=== PATIENT | female | born 1960 | race Caucasian/White ===

== ENCOUNTER 2016-11-01 12:34 | Emergency (ER) | payer OTHER ==
[~2016-11-01] VITALS: Ht 165.1 cm; Wt 80.0 kg
[~2016-11-01 12:34] MED LIST: COZA100T PO; DICL75 PO; GABA600T PO; IBUP-238 PO; LIDO5DIS35 TD; LORTA5 PO; MELO15 PO; PRAV10 PO; PROT40TA PO; RANI150T PO; SERT25TA83 PO; TIZA4 PO; TOPI50TA4 PO; WELL150T PO
[2016-11-01 12:36] VITALS: BP 212/104; PULSE 80; RESP 20; TEMP 98.1; O2SAT 95
[2016-11-01 15:13] LABS: AUTOMATED NEUTROPHIL # 5.1 TH/MM3 (1.8-7.7); BASOPHIL % 0.5 % (0.0-2.0); EOSINOPHIL # 0.1 TH/MM3 (0-0.4); EOSINOPHIL % 1.8 % (0.0-4.0); HEMATOCRIT 40.5 % (35.0-46.0); HEMO FLAGS DIFF FINAL; LYMPH % 18.5 % (9.0-44.0); LYMPHOCYTE # 1.3 TH/MM3 (1.0-4.8); MEAN CELL VOLUME 91.5 FL (80.0-100.0); MEAN CORPUSCULAR HEMOGLOBIN 31.4 PG (27.0-34.0); MEAN CORPUSCULAR HGB CONC 34.4 % (32.0-36.0); MONO % 6.1 % (0.0-8.0); NEUT % 73.1 % (16.0-70.0); PLATELET COUNT 170 TH/MM3 (150-450); RED BLOOD COUNT 4.43 MIL/MM3 (4.00-5.30); RED CELL DISTRIBUTION WIDTH 14.2 % (11.6-17.2); WHITE BLOOD COUNT 6.9 TH/MM3 (4.0-11.0)
[2016-11-01 15:28] LABS: ANION GAP 7 MEQ/L (5-15); AST (GOT) 18 U/L (15-37); BICARBONATE 24.7 MEQ/L (21.0-32.0); BLOOD UREA NITROGEN 9 MG/DL (7-18); CHLORIDE 108 MEQ/L (98-107); GLOMERULAR FILTRATION RATE 87 ML/MIN (>89); POTASSIUM 3.8 MEQ/L (3.5-5.1); SODIUM (NA) 140 MEQ/L (136-145)
[2016-11-01 15:31] LABS: ALKALINE PHOSPHATASE 86 U/L (45-117); ALT (GPT) 22 U/L (10-53); TOTAL BILIRUBIN ADULT 0.4 MG/DL (0.2-1.0)
[2016-11-01 15:40] LABS: BLOOD, URINE NEG (NEG); COMMENT (UR) CULT NOT INDICATED; CULTURE IF INDICATED CULT NOT INDICATED; GLUCOSE,URINE NEG (NEG); KETONE, URINE NEG (NEG); MUCUS URINE FEW /lpf (OCC); NITRITE,URINE NEG (NEG); PH, URINE 6.5 (5.0-8.5); SQUAMOUS EPITHELIAL CELL URINE 2 /hpf (0-5); URINE COLOR YELLOW (YELLW/STRAW)
--- NOTE | 2016-11-01 16:07 | PD ---
HPI . diarrhea, headache and nausea Chief Complaint: GI Complaint Time Seen by Provider: 16:07 Travel History International Travel<30 days: No Contact w/Intl Traveler<30days: No Traveled to known affect area: No History of Present Illness HPI 56-year-old male with history of hypertension and migraines here with complaints of migraine, nausea, vomiting and diarrhea. Patient tells me that she has had nausea for over 2 weeks and vomiting for 1 week. She went to her primary care provider and was told that she needed to be on omeprazole and Protonix. She has then developed diarrhea for 2 days and some abdominal pain. She is also reporting some heart palpitations. She tells me that her headache is similar to the migraines she has had in the past. Usually [employer] [place] works, but it is not working at this point. Rates the pain 10/10 without any radiation. In her abdomen she describes it more as a discomfort, but with examination and light palpation patient is writhing in pain. She denies any chest pain, diaphoresis or shortness of breath. She is accompanied by her significant other. PFSH Past Medical History Arthritis: Yes Autoimmune Disease: No Blood Disorders: No Anxiety: Yes Depression: Yes Heart Rhythm Problems: No Cancer: No Cardiovascular Problems: Yes (HTN) Chemotherapy: No Congestive Heart Failure: No Cerebrovascular Accident: No Endocrine: No Gastrointestinal Disorders: Yes GERD: Yes Genitourinary: No Headaches: Yes Hepatitis: No Hiatal Hernia: Yes Hypertension: Yes Immune Disorder: No Implanted Vascular Access Dvce: Yes Kidney Stones: No Musculoskeletal: Yes (NUMBNESS LEFT WRIST) Neurologic: Yes ( NERUOPATHY, SPINAL CORD ILLNESS) Psychiatric: No Reproductive: No Respiratory: No Migraines: Yes Myocardial Infarction: No Radiation Therapy: No Renal Failure: No Seizures: Yes Sleep Apnea: No ?: Not LMP: MENOPAUSAL Menopausal: Yes : 4 Para: 3 : 1 Tubal Ligation: Yes Past Surgical History Arteriovenous Shunt: Yes (neck ) Cardiac Surgery: No Cholecystectomy: No Gynecologic Surgery: Yes (breast augmentation) Neurologic Surgery: Yes (NECK) Pacemaker: No Other Surgery: Yes (BREAST AUGMENTATION; 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) Social History Alcohol Use: No Tobacco Use: Yes (5-7 CIGARETTES DAILY) Substance Use: Yes (MARIJUANA, COCAINE HX) Allergies-Medications (Allergen,Severity, Reaction): Coded Allergies: *MDRO Multi-Drug Resistant Organism (Unverified Allergy, Unknown, 11/01/16) MRSA 2013 Reported Meds & Prescriptions Reported Meds & Active Scripts Active Zofran (Ondansetron HCl) 4 Mg Tab 4 Mg PO Q8HR PRN Lidoderm Patch (Lidocaine) 5 % Dis 1 Patch TD DAILY Diclofenac Sodium Dr (Diclofenac Sod) 75 Mg Tab 75 Mg PO BID PRN Motrin (Ibuprofen) 800 Mg Tab 800 Mg PO TID PRN Reported Zanaflex 4 mg (Tizanidine HCl) 4 Mg Tab 4 Mg PO Q8H Ranitidine 150 mg (Ranitidine HCl) 150 Mg Tab 150 Mg PO HS Mobic 15 Mg Tab (Meloxicam) 15 Mg Tab 15 Mg PO DAILY Wellbutrin Sr (Bupropion HCl) 150 Mg Tab 150 Mg PO BID [place] 5-325 mg (Hydrocodone-Acetaminophen 5-325 mg) 1 Tab 1-2 Tab PO Q4H PRN Pravastatin Sodium (Pravastatin Sod) 10 Mg Tab 10 Mg PO HS Sertraline 25 mg (Sertraline HCl) 25 Mg Tab 25 Mg PO DAILY Cozaar (Losartan Potassium) 100 Mg Tab 100 Mg PO DAILY Gabapentin 600 Mg Tab 600 Mg PO BID Topamax (Topiramate) 50 Mg Tab 50 Mg PO TID Protonix (Pantoprazole Sodium) 40 Mg Tab 40 Mg PO DAILY Review of Systems General / Constitutional: No: Fever Eyes: No: Visual changes HENT: Positive: Headaches Cardiovascular: No: Chest Pain or Discomfort Respiratory: No: Shortness of Breath Gastrointestinal: Positive: Nausea, Vomiting, Abdominal Pain Genitourinary: No: Dysuria Musculoskeletal: No: Pain Skin: No Rash Neurologic: No: Weakness Psychiatric: No: Depression Endocrine: No: Polydipsia Hematologic/Lymphatic: No: Easy Bruising Physical Exam Narrative GENERAL: AAO x 3, no acute distress, Well-nourished, well-developed patient. SKIN: Warm and dry. No visible rashes or bruising. HEAD: Normocephalic and atraumatic. EYES: No scleral icterus. No injection or drainage. EOM intact, PERRLA ENT: No nasal drainage noted. Mucous membranes pink. Airway patent. NECK: Supple, trachea midline. No JVD. No lymphadenopathy. CARDIOVASCULAR: Regular rate and rhythm without murmurs, gallops, or rubs. RESPIRATORY: Breath sounds equal bilaterally. No accessory muscle use. No rhonchi or rales. GASTROINTESTINAL: Abdomen soft, nondistended, tender throughout entire abdomen. No rebound or guarding. EXTREMITIES: No cyanosis or edema. BACK: Nontender without obvious deformity. No CVA tenderness. PSYCH: AAO x 3, normal affect. Data Data Last Documented VS Vital Signs Date Time Temp Pulse Resp B/P Pulse Ox O2 Delivery O2 Flow Rate FiO2 11/01/16 16:30 16 98 Room Air 11/01/16 12:36 98.1 80 212/104 Orders Complete Blood Count With Diff (11/01/16 12:51) Comprehensive Metabolic Panel (11/01/16 12:51) Urinalysis - C+S If Indicated (11/01/16 12:51) Iv Access Insert/Monitor (11/01/16 12:51) Oxygen Administration (11/01/16 12:51) Oximetry (11/01/16 12:51) Lipase (11/01/16 12:51) Lactic Acid (11/01/16 16:12) Ct Abd/Pel W Iv Contrast(Rout) (11/01/16 16:12) Ecg Monitoring (11/01/16 16:12) Sodium Chloride 0.9% Flush (Ns Flush) (11/01/16 16:15) Electrocardiogram (11/01/16 16:12) Ckmb (Isoenzyme) Profile (11/01/16 16:12) Magnesium (Mg) (11/01/16 16:12) Troponin I (11/01/16 16:12) Prochlorperazine Inj (Compazine Inj) (11/01/16 16:30) Diphenhydramine Inj (Benadryl Inj) (11/01/16 16:30) Oral Contrast - Adult (11/01/16 16:37) Diatrizoate Liq ( Gastrojohn Liq) (11/01/16 16:43) Iohexol 350 Inj (Omnipaque 350 Inj) (11/01/16 19:02) Labs Laboratory Tests Test 11/01/16 11/01/16 11/01/16 13:15 14:20 16:30 Urine Color YELLOW Urine Turbidity CLEAR Urine pH 6.5 Urine Specific [place] 1.015 Urine Protein NEG mg/dL Urine Glucose (UA) NEG mg/dL Urine Ketones NEG mg/dL Urine Occult Blood NEG Urine Nitrite NEG Urine Bilirubin NEG Urine Urobilinogen LESS THAN 2.0 MG/DL Urine Leukocyte Esterase NEG Urine WBC LESS THAN 1 /hpf Urine Squamous Epithelial 2 /hpf Cells Urine Mucus FEW /lpf Microscopic Urinalysis Comment CULT NOT INDICATED White Blood Count 6.9 TH/MM3 Red Blood Count 4.43 MIL/MM3 Hemoglobin 13.9 GM/DL Hematocrit 40.5 % Mean Corpuscular Volume 91.5 FL Mean Corpuscular Hemoglobin 31.4 PG Mean Corpuscular Hemoglobin 34.4 % Concent Red Cell Distribution Width 14.2 % Platelet Count 170 TH/MM3 Mean Platelet Volume 8.9 FL Neutrophils (%) (Auto) 73.1 % Lymphocytes (%) (Auto) 18.5 % Monocytes (%) (Auto) 6.1 % Eosinophils (%) (Auto) 1.8 % Basophils (%) (Auto) 0.5 % Neutrophils # (Auto) 5.1 TH/MM3 Lymphocytes # (Auto) 1.3 TH/MM3 Monocytes # (Auto) 0.4 TH/MM3 Eosinophils # (Auto) 0.1 TH/MM3 Basophils # (Auto) 0.0 TH/MM3 CBC Comment DIFF FINAL Differential Comment Sodium Level 140 MEQ/L Potassium Level 3.8 MEQ/L Chloride Level 108 MEQ/L Carbon Dioxide Level 24.7 MEQ/L Anion Gap 7 MEQ/L Blood Urea Nitrogen 9 MG/DL Creatinine 0.70 MG/DL Estimat Glomerular Filtration 87 ML/MIN Rate Random Glucose 136 MG/DL Calcium Level 9.3 MG/DL Total Bilirubin 0.4 MG/DL Aspartate Amino Transf 18 U/L (AST/SGOT) Alanine Aminotransferase 22 U/L (ALT/SGPT) Alkaline Phosphatase 86 U/L Total Protein 7.7 GM/DL Albumin 3.8 GM/DL Lipase 90 U/L Lactic Acid Level 0.7 mmol/L Magnesium Level 2.2 MG/DL Total Creatine Kinase 83 U/L Troponin I LESS THAN 0.02 NG/ML [facility] Medical Decision Making Medical Screen Exam Complete: Yes Emergency Medical Condition: Yes Medical Record Reviewed: Yes Differential Diagnosis migraine, Gastroenteritis, diverticulitis, GERD, IBS, Narrative Course 56-year-old male with history of hypertension and migraines here with complaints of migraine, nausea, vomiting and diarrhea. Patient tells me that she has had nausea for over 2 weeks and vomiting for 1 week. She went to her primary care provider and was told that she needed to be on omeprazole and Protonix. She has then developed diarrhea for 2 days and some abdominal pain. She is also reporting some heart palpitations. She tells me that her headache is similar to the migraines she has had in the past. Usually [employer] [place] works, but it is not working at this point. Rates the pain 10/10 without any radiation. In her abdomen she describes it more as a discomfort, but with examination and light palpation patient is writhing in pain. She denies any chest pain, diaphoresis or shortness of breath. She is accompanied by her significant other. Patient seen and examined. Case discussed with Dr. Boswell. Additional labs and testing have been ordered. Workup is in progress. If CT scan and labs are negative, patient will be cleared for discharge home. Laboratory Tests Test 11/01/16 11/01/16 11/01/16 13:15 14:20 16:30 Urine Color YELLOW Urine Turbidity CLEAR Urine pH 6.5 Urine Specific [place] 1.015 Urine Protein NEG mg/dL Urine Glucose (UA) NEG mg/dL Urine Ketones NEG mg/dL Urine Occult Blood NEG Urine Nitrite NEG Urine Bilirubin NEG Urine Urobilinogen LESS THAN 2.0 MG/DL Urine Leukocyte Esterase NEG Urine WBC LESS THAN 1 /hpf Urine Squamous Epithelial 2 /hpf Cells Urine Mucus FEW /lpf Microscopic Urinalysis Comment CULT NOT INDICATED White Blood Count 6.9 TH/MM3 Red Blood Count 4.43 MIL/MM3 Hemoglobin 13.9 GM/DL Hematocrit 40.5 % Mean Corpuscular Volume 91.5 FL Mean Corpuscular Hemoglobin 31.4 PG Mean Corpuscular Hemoglobin 34.4 % Concent Red Cell Distribution Width 14.2 % Platelet Count 170 TH/MM3 Mean Platelet Volume 8.9 FL Neutrophils (%) (Auto) 73.1 % Lymphocytes (%) (Auto) 18.5 % Monocytes (%) (Auto) 6.1 % Eosinophils (%) (Auto) 1.8 % Basophils (%) (Auto) 0.5 % Neutrophils # (Auto) 5.1 TH/MM3 Lymphocytes # (Auto) 1.3 TH/MM3 Monocytes # (Auto) 0.4 TH/MM3 Eosinophils # (Auto) 0.1 TH/MM3 Basophils # (Auto) 0.0 TH/MM3 CBC Comment DIFF FINAL Differential Comment Sodium Level 140 MEQ/L Potassium Level 3.8 MEQ/L Chloride Level 108 MEQ/L Carbon Dioxide Level 24.7 MEQ/L Anion Gap 7 MEQ/L Blood Urea Nitrogen 9 MG/DL Creatinine 0.70 MG/DL Estimat Glomerular Filtration 87 ML/MIN Rate Random Glucose 136 MG/DL Calcium Level 9.3 MG/DL Total Bilirubin 0.4 MG/DL Aspartate Amino Transf 18 U/L (AST/SGOT) Alanine Aminotransferase 22 U/L (ALT/SGPT) Alkaline Phosphatase 86 U/L Total Protein 7.7 GM/DL Albumin 3.8 GM/DL Lipase 90 U/L Lactic Acid Level 0.7 mmol/L Magnesium Level 2.2 MG/DL Total Creatine Kinase 83 U/L Troponin I LESS THAN 0.02 NG/ML Last Impressions Abdomen/Pelvis CT 11/01/16 1612 Signed Impressions: Service Date/Time: Tuesday, November 01, 2016 19:00 - CONCLUSION: 1. No acute findings. Degenerative disc disease in the lumbar spine. No obstruction, free fluid or free air. Chidi Julian MD Patient reassessed at 1932: she was resting comfortably. I discussed all her normal findings. Advised that she will need to f/u with PCP. She was understanding. Zofran upon discharge for nausea/vomiting. Patient verbalized understanding of instructions, questions were answered, and thanked me for their care. I advised them if their condition worsens, please return to the nearest emergency room for further care. Diagnosis Primary Impression: Nausea & vomiting Qualified Code: R11.2 - Non-intractable vomiting with nausea, unspecified vomiting type Additional Impressions: Gastroenteritis Migraine Qualified Code: G43.909 - Migraine without status migrainosus, not intractable , unspecified migraine type Patient Instructions: Gastroenteritis (ED), General Instructions, Migraine Headache (ED) Additional Instructions: Please return to emergency department if your symptoms return or worsen. Follow up with your primary care provider. Resume your regular home medications. You can use [id number] Excedrin Migraine as needed and directed on the bottle. Try to start with a very bland diet such as bananas, apple, rice, and toast. Advance as tolerated. Med/Other Pt SpecificInfo: No Change to Meds Scripts Ondansetron (Zofran)4 Mg Tab4 Mg PO Q8HR PRN (NAUSEA OR VOMITING) #10 TAB Ref 0 Prov:Nella Boswell MD 11/01/16 Condition: Stable Jayda Muñiz Nov 01, 2016 16:07
[2016-11-01] MEDS ORDERED: SODIUM CHLORIDE 0.9% FLUSH 10 ML FLUSH IV FLUSH PRN (16:15)
[2016-11-01 16:30] VITALS: RESP 16; O2SAT 98
[2016-11-01] MEDS ORDERED: diphenhydrAMINE HCL 50 MG/ML VIAL IV PUSH ONE (16:30)
[2016-11-01] MEDS ORDERED: PROCHLORPERAZINE INJ 10 MG/2 ML VIAL IVS ONE (16:30)
[2016-11-01] MEDS ORDERED: DIATRIZOATE MEGLUM/DIATRIZOATE SOD 9 ML CUP ONE (16:43)
--- NOTE | 2016-11-01 17:08 | PD ---
Physical Exam Date Seen by Provider: Nov 01, 2016 Narrative Patient presents with multiple complaints. Her chief complaint is vomiting and diarrhea. Secondary complaint is headache. Data Data Last Documented VS Vital Signs Date Time Temp Pulse Resp B/P Pulse Ox O2 Delivery O2 Flow Rate FiO2 11/01/16 16:30 16 98 Room Air 11/01/16 12:36 98.1 80 212/104 Orders Complete Blood Count With Diff (11/01/16 12:51) Comprehensive Metabolic Panel (11/01/16 12:51) Urinalysis - C+S If Indicated (11/01/16 12:51) Iv Access Insert/Monitor (11/01/16 12:51) Oxygen Administration (11/01/16 12:51) Oximetry (11/01/16 12:51) Lipase (11/01/16 12:51) Lactic Acid (11/01/16 16:12) Ct Abd/Pel W Iv Contrast(Rout) (11/01/16 16:12) Ecg Monitoring (11/01/16 16:12) Sodium Chloride 0.9% Flush (Ns Flush) (11/01/16 16:15) Electrocardiogram (11/01/16 16:12) Ckmb (Isoenzyme) Profile (11/01/16 16:12) Magnesium (Mg) (11/01/16 16:12) Troponin I (11/01/16 16:12) Prochlorperazine Inj (Compazine Inj) (11/01/16 16:30) Diphenhydramine Inj (Benadryl Inj) (11/01/16 16:30) Oral Contrast - Adult (11/01/16 16:37) Diatrizoate Liq ( Gastroview Liq) (11/01/16 16:43) Labs Laboratory Tests Test 11/01/16 11/01/16 13:15 14:20 Urine Color YELLOW Urine Turbidity CLEAR Urine pH 6.5 Urine Specific [place] 1.015 Urine Protein NEG mg/dL Urine Glucose (UA) NEG mg/dL Urine Ketones NEG mg/dL Urine Occult Blood NEG Urine Nitrite NEG Urine Bilirubin NEG Urine Urobilinogen LESS THAN 2.0 MG/DL Urine Leukocyte Esterase NEG Urine WBC LESS THAN 1 /hpf Urine Squamous Epithelial 2 /hpf Cells Urine Mucus FEW /lpf Microscopic Urinalysis Comment CULT NOT INDICATED White Blood Count 6.9 TH/MM3 Red Blood Count 4.43 MIL/MM3 Hemoglobin 13.9 GM/DL Hematocrit 40.5 % Mean Corpuscular Volume 91.5 FL Mean Corpuscular Hemoglobin 31.4 PG Mean Corpuscular Hemoglobin 34.4 % Concent Red Cell Distribution Width 14.2 % Platelet Count 170 TH/MM3 Mean Platelet Volume 8.9 FL Neutrophils (%) (Auto) 73.1 % Lymphocytes (%) (Auto) 18.5 % Monocytes (%) (Auto) 6.1 % Eosinophils (%) (Auto) 1.8 % Basophils (%) (Auto) 0.5 % Neutrophils # (Auto) 5.1 TH/MM3 Lymphocytes # (Auto) 1.3 TH/MM3 Monocytes # (Auto) 0.4 TH/MM3 Eosinophils # (Auto) 0.1 TH/MM3 Basophils # (Auto) 0.0 TH/MM3 CBC Comment DIFF FINAL Differential Comment Sodium Level 140 MEQ/L Potassium Level 3.8 MEQ/L Chloride Level 108 MEQ/L Carbon Dioxide Level 24.7 MEQ/L Anion Gap 7 MEQ/L Blood Urea Nitrogen 9 MG/DL Creatinine 0.70 MG/DL Estimat Glomerular Filtration 87 ML/MIN Rate Random Glucose 136 MG/DL Calcium Level 9.3 MG/DL Total Bilirubin 0.4 MG/DL Aspartate Amino Transf 18 U/L (AST/SGOT) Alanine Aminotransferase 22 U/L (ALT/SGPT) Alkaline Phosphatase 86 U/L Total Protein 7.7 GM/DL Albumin 3.8 GM/DL Lipase 90 U/L MDM Supervised Visit with ROSEANN: Yes Narrative Course I, Dr. Boswell, have reviewed the advance practice practitioner's documentation and am in agreement, met with the patient face to face, made the diagnosis, and the medical decision making was done by me. *My assessment and Findings: Patient is awake and alert and in no acute distress. Nella Boswell MD Nov 01, 2016 17:08
[2016-11-01 17:23] LABS: MAGNESIUM 2.2 MG/DL (1.5-2.5)
[2016-11-01 17:26] LABS: CREATINE KINASE 83 U/L (26-192)
[2016-11-01] MEDS ORDERED: IOHEXOL 350 MG/ML 10 ML VIAL (for RAD DIAG) IV ONE (19:02)
--- NOTE | 2016-11-01 19:20 | RADRPT ---
EXAM DATE/TIME: 11/01/2016 19:00 [facility] COMPARISON: No previous studies available for comparison. INDICATIONS : Vomiting and diarrhea X 2 weeks. IV CONTRAST: 92 cc Omnipaque 350 (iohexol) IV ORAL CONTRAST: No oral contrast ingested. RADIATION DOSE: 12.95 CTDIvol (mGy) MEDICAL HISTORY : Cardiovascular disease. Seizures. Hypertension.GERD SURGICAL HISTORY : None. ENCOUNTER: Initial ACUITY: 2 weeks PAIN SCALE: 7/10 LOCATION: abdomen TECHNIQUE: Volumetric scanning of the abdomen and pelvis was performed. Using automated exposure control and ad justment of the mA and/or kV according to patient size, radiation dose was kept as low as reasonably achievable to obtain optimal diagnostic quality images. FINDINGS: LOWER LUNGS: The visualized lower lungs are clear. LIVER: Homogeneous density without lesion. There is no dilation of the biliary tree. No calcified gallston es. SPLEEN: Normal size without lesion. PANCREAS: Within normal limits. KIDNEYS: Normal in size and shape. There is no mass, stone or hydronephrosis. ADRENAL GLANDS: Within normal limits. VASCULAR: There is no aortic aneurysm. BOWEL/MESENTERY: The stomach, small bowel, and colon demonstrate no acute abnormality. There is no free intraperitone al air or fluid. ABDOMINAL WALL: Within normal limits. RETROPERITONEUM: There is no lymphadenopathy. BLADDER: No wall thickening or mass. REPRODUCTIVE: Within normal limits. INGUINAL: There is no lymphadenopathy or hernia. MUSCULOSKELETAL: Within normal limits for patient age. CONCLUSION: 1. No acute findings. Degenerative disc disease in the lumbar spine. No obstruction, free fluid or fr ee air. Chidi Julian MD on November 01, 2016 at 19:10 Board Certified Radiologist. This report was verified electronically.
[2016-11-01] MEDS ORDERED: ZOFR4TAB PO (19:39)
[2016-11-01 20:32] VITALS: BP 157/99; TEMP 98.2
[2016-11-01] MEDS ORDERED: MAPA325T PO (22:04)
[2016-11-01] MEDS ORDERED: GNP5TAB6 PO (22:04)
[2016-11-01] MEDS ORDERED: METF500T PO (22:04)
[2016-11-01] MEDS ORDERED: MECL1TAB42 PO (22:04)
[2016-11-01] MEDS ORDERED: GABA300C5 PO (22:04)
[2016-11-01] MEDS ORDERED: CANA100T PO (22:04)
[2016-11-01] MEDS ORDERED: GLIP10TA6 PO (22:04)
[2016-11-01] MEDS ORDERED: METO25TA3 PO (22:04)
[2016-11-01] MEDS ORDERED: BUPR100CR PO (22:04)
[2016-11-01] MEDS ORDERED: OMEG100010 PO (22:04)
--- NOTE | 2016-11-03 12:52 | EKG ---
Date Performed: 11/01/2016 Time Performed: 16:34:20 PTAGE: 56 years EKG: Sinus rhythm NORMAL ECG PREVIOUS TRACING : 01/21/2016 09.59 Compared to prior tracing no significant change DOCTOR: Eliel Caballero Interpretating Date/Time 11/03/2016 12:50:39
== END 2016-11-01 20:32 | disposition home or self-care (01) ==
LOC: NEPA 12:34
DX: R11.2 Nausea with vomiting, unspecified (principal); K52.9 Noninfective gastroenteritis and colitis, unspecified; I10 Essential (primary) hypertension; Z72.0 Tobacco use
CPT/HCPCS: 74177; 80053; 81001; 82550; 83605; 83690; 83735; 84484; 85025; 93005; 96374; 96375; 99284; J0780; J1200; Q9963; Q9967

== ENCOUNTER 2016-11-28 19:24 | Emergency (ER) | payer OTHER, MEDICAID ==
[~2016-11-28] VITALS: Ht 165.1 cm; Wt 82.0 kg
[~2016-11-28 19:24] MED LIST changes: +ZOFR4TAB PO
[2016-11-28 19:26] VITALS: BP 152/100; PULSE 129; RESP 16; TEMP 99.9; O2SAT 96
[2016-11-28] MEDS ORDERED: SODIUM CHLOR 0.9% 1000 ML INJ 1,000 ML IV SCH (21:19)
[2016-11-28] MEDS ORDERED: ONDANSETRON HCL 4 MG/2 ML VIAL IVP ONE (21:30)
[2016-11-28] MEDS ORDERED: ACETAMINOPHEN/HYDROcodone 325 MG/5 MG TAB PO ONE (21:30)
[2016-11-28] MEDS ORDERED: SODIUM CHLORIDE 0.9% FLUSH 10 ML FLUSH IV FLUSH PRN (21:30)
--- NOTE | 2016-11-28 21:54 | PD ---
HPI Chief Complaint: Cold / Flu Symptoms Time Seen by Provider: 21:26 Travel History International Travel<30 days: No Contact w/Intl Traveler<30days: No Traveled to known affect area: No History of Present Illness HPI Patient's 56-year-old female presents emergency department for evaluation of generalized body aches, feeling flushed, upper respiratory symptoms for the past day and a half. Patient states this never happened to her before. She has not had her pain medicine as it has run out and she does not have follow-up appointment with her physician for some time. 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 She does endorse a dry cough denies any chest pain shortness of breath abdominal pain. Does endorse some mild nausea without vomiting. States her symptoms been rapidly worsening. PFSH Past Medical History Arthritis: Yes Autoimmune Disease: No Blood Disorders: No Anxiety: Yes Depression: Yes Heart Rhythm Problems: No Cancer: No Cardiovascular Problems: Yes (HTN) Chemotherapy: No Congestive Heart Failure: No Cerebrovascular Accident: No Endocrine: No Gastrointestinal Disorders: Yes GERD: Yes Genitourinary: No Headaches: Yes Hepatitis: No Hiatal Hernia: Yes Hypertension: Yes Immune Disorder: No Implanted Vascular Access Dvce: Yes Kidney Stones: No Musculoskeletal: Yes (NUMBNESS LEFT WRIST) Neurologic: Yes ( NERUOPATHY, SPINAL CORD ILLNESS) Psychiatric: No Reproductive: No Respiratory: No Migraines: Yes Myocardial Infarction: No Radiation Therapy: No Renal Failure: No Seizures: Yes Sleep Apnea: No Menopausal: Yes : 4 Para: 3 : 1 Tubal Ligation: Yes Past Surgical History Arteriovenous Shunt: Yes (neck ) Cardiac Surgery: No Cholecystectomy: No Gynecologic Surgery: Yes (breast augmentation) Neurologic Surgery: Yes (NECK) Pacemaker: No Other Surgery: Yes (BREAST AUGMENTATION; 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 SKIN: No rash no wound. HEAD: Atraumatic. Normocephalic. I do not feel a reservoir on her head in any location. EYES: Pupils equal and round. No scleral icterus. No injection or drainage. ENT: No nasal bleeding or discharge. Mucous membranes pink and moist. TMs clear bilateral, oropharynx clear. NECK: Trachea midline. No JVD. Kernig's and Brudzinski signs are negative. CARDIOVASCULAR: Tachycardia with regular rhythm. No murmur appreciated. RESPIRATORY: No accessory muscle use. Clear to auscultation. Breath sounds equal bilaterally. GASTROINTESTINAL: Abdomen soft, non-tender, nondistended. Hepatic and splenic margins not palpable. MUSCULOSKELETAL: No obvious deformities. No clubbing. No cyanosis. No edema. NEUROLOGICAL: Awake and alert. No obvious cranial nerve deficits. Motor grossly within normal limits. Normal speech. PSYCHIATRIC: Appropriate mood and affect; insight and judgment normal. Data Data Last Documented VS Vital Signs Date Time Temp Pulse Resp B/P Pulse Ox O2 Delivery O2 Flow Rate FiO2 11/28/16 19:26 99.9 129 16 152/100 96 Room Air Orders Shunt Series (11/28/16 ) Ct Brain W/O Iv Contrast(Rout) (11/28/16 ) Basic Metabolic Panel (Bmp) (11/28/16 21:19) Complete Blood Count With Diff (11/28/16 21:19) Urinalysis - C+S If Indicated (11/28/16 21:19) Iv Access Insert/Monitor (11/28/16 21:19) Ecg Monitoring (11/28/16 21:19) Oximetry (11/28/16 21:19) Ondansetron Inj (Zofran Inj) (11/28/16 21:30) Sodium Chlor 0.9% 1000 Ml Inj (Ns 1000 M (11/28/16 21:19) Sodium Chloride 0.9% Flush (Ns Flush) (11/28/16 21:30) Acetamin-Hydrocod 325-5 Mg ([place] 5-325 (11/28/16 21:30) Influenzae A/B Antigen (11/28/16 21:22) MDM Medical Decision Making Medical Screen Exam Complete: Yes Emergency Medical Condition: Yes Differential Diagnosis Flu, pneumonia, meningitis unlikely, shunt malfunction very unlikely. Narrative Course Patient was roomed in emergency department, has multiple complaints vielka to acute viral syndrome and suspect influenza. She does say that she has a shunt in place however I cannot feel the bulb. A shunt series was ordered for this patient. I do not appreciate any Kernig's and Brudzinski signs. Basic workup has been ordered including CBC BMP rapid flu test. Shunt series was ordered. Patient was discussed with Dr. Espinosa at 2130 to follow-up this workup and disposition patient properly. Condition: Stable Chan Randhawa MD Nov 28, 2016 21:54
--- NOTE | 2016-11-28 21:56 | RADRPT ---
EXAM DATE/TIME: 11/28/2016 21:31 [facility] COMPARISON: CT BRAIN W/O CONTRAST, December 02, 2015, 14:19. INDICATIONS : Headache. RADIATION DOSE: 56.35 CTDIvol (mGy) MEDICAL HISTORY : Seizures. Hypertension. shunt SURGICAL HISTORY : shunt placement ENCOUNTER: Initial ACUITY: 1 day PAIN SCALE: 10/10 LOCATION: cranial TECHNIQUE: Multiple contiguous axial images were obtained of the head. Using automated exposure control and adj ustment of the mA and/or kV according to patient size, radiation dose was kept as low as reasonably a chievable to obtain optimal diagnostic quality images. FINDINGS: CEREBRUM: The ventricles are normal for age. No evidence of midline shift, mass lesion, hemorrhage or acute in farction. No extra-axial fluid collections are seen. POSTERIOR FOSSA: The cerebellum and brainstem are intact. The 4th ventricle is midline. The cerebellopontine angle i s unremarkable. EXTRACRANIAL: The visualized portion of the orbits is intact. SKULL: The calvaria is intact. No evidence of skull fracture. CONCLUSION: Negative noncontrast CT brain. Moises Matute MD on November 28, 2016 at 21:53 Board Certified Radiologist. This report was verified electronically.
--- NOTE | 2016-11-28 22:18 | RADRPT ---
EXAM DATE/TIME: 11/28/2016 21:48 [facility] COMPARISON: CT BRAIN W/O CONTRAST, November 28, 2016, 21:31. INDICATIONS : Headache. MEDICAL HISTORY : None. Ventricular shunt. SURGICAL HISTORY : Craniotomy. ENCOUNTER: Initial ACUITY: 1 day PAIN SCORE: 8/10 LOCATION: Bilateral cranial FINDINGS: Conventional radiographs of the skull (2 views) neck (2 views), chest and KUB were performed. No jatinder nt tubing is seen. A CT brain performed earlier today also demonstrates no evidence of ventriculosto my shunt. Radiopaque densities seen on the study included underwire bra, bra snaps, and 2 rings on a hand projected over the right lower quadrant. CONCLUSION: There is no evidence of shunt or shunt tubing on this shunt series. Moises Matute MD on November 28, 2016 at 22:13 Board Certified Radiologist. This report was verified electronically.
[2016-11-28 22:20] VITALS: PULSE 114; RESP 18; O2SAT 98
[2016-11-28 22:28] VITALS: BP 116/75; PULSE 110; RESP 16; TEMP 102.9; O2SAT 96
--- NOTE | 2016-11-28 22:50 | PD ---
Data Data Last Documented VS Vital Signs Date Time Temp Pulse Resp B/P Pulse Ox O2 Delivery O2 Flow Rate FiO2 11/28/16 23:30 102.3 11/28/16 22:28 110 16 116/75 96 Room Air Orders Shunt Series (11/28/16 ) Ct Brain W/O Iv Contrast(Rout) (11/28/16 ) Basic Metabolic Panel (Bmp) (11/28/16 21:19) Complete Blood Count With Diff (11/28/16 21:19) Urinalysis - C+S If Indicated (11/28/16 21:19) Iv Access Insert/Monitor (11/28/16 21:19) Ecg Monitoring (11/28/16 21:19) Oximetry (11/28/16 21:19) Ondansetron Inj (Zofran Inj) (11/28/16 21:30) Sodium Chlor 0.9% 1000 Ml Inj (Ns 1000 M (11/28/16 21:19) Sodium Chloride 0.9% Flush (Ns Flush) (11/28/16 21:30) Acetamin-Hydrocod 325-5 Mg (Corolla 5-325 (11/28/16 21:30) Influenzae A/B Antigen (11/28/16 21:22) Ketorolac Inj (Toradol Inj) (11/28/16 23:00) Lactic Acid Sepsis Protocol (11/28/16 23:09) Blood Culture (11/28/16 23:09) Cath For Specimen (11/28/16 23:09) Acetaminophen (Tylenol) (11/29/16 00:00) Ceftriaxone Inj (Rocephin Inj) (11/29/16 00:11) Urine Culture (11/29/16 00:12) Labs Laboratory Tests Test 11/28/16 11/28/16 11/28/16 22:05 23:20 23:29 White Blood Count 9.9 TH/MM3 Red Blood Count 4.82 MIL/MM3 Hemoglobin 14.8 GM/DL Hematocrit 44.5 % Mean Corpuscular Volume 92.3 FL Mean Corpuscular Hemoglobin 30.7 PG Mean Corpuscular Hemoglobin 33.2 % Concent Red Cell Distribution Width 14.1 % Platelet Count 165 TH/MM3 Mean Platelet Volume 9.0 FL Neutrophils (%) (Auto) 88.8 % Lymphocytes (%) (Auto) 6.8 % Monocytes (%) (Auto) 4.0 % Eosinophils (%) (Auto) 0.2 % Basophils (%) (Auto) 0.2 % Neutrophils # (Auto) 8.8 TH/MM3 Lymphocytes # (Auto) 0.7 TH/MM3 Monocytes # (Auto) 0.4 TH/MM3 Eosinophils # (Auto) 0.0 TH/MM3 Basophils # (Auto) 0.0 TH/MM3 CBC Comment DIFF FINAL Differential Comment Sodium Level 136 MEQ/L Potassium Level 4.0 MEQ/L Chloride Level 106 MEQ/L Carbon Dioxide Level 21.9 MEQ/L Anion Gap 8 MEQ/L Blood Urea Nitrogen 9 MG/DL Creatinine 0.92 MG/DL Estimat Glomerular Filtration 64 ML/MIN Rate Random Glucose 126 MG/DL Calcium Level 8.8 MG/DL Lactic Acid Level 1.2 mmol/L Urine Color YELLOW Urine Turbidity HAZY Urine pH 5.0 Urine Specific [place] 1.013 Urine Protein NEG mg/dL Urine Glucose (UA) NEG mg/dL Urine Ketones NEG mg/dL Urine Occult Blood MOD Urine Nitrite NEG Urine Bilirubin NEG Urine Urobilinogen LESS THAN 2.0 MG/DL Urine Leukocyte Esterase TRACE Urine RBC 43 /hpf Urine WBC 1 /hpf Urine Squamous Epithelial 3 /hpf Cells Urine Bacteria OCC /hpf Urine Hyaline Casts 1 /lpf Urine Mucus FEW /lpf Microscopic Urinalysis Comment CULT NOT INDICATED MDM Supervised Visit with ROSEANN: No Narrative Course Patient signed out to me by previous provider. Please see associated no for further details. In short patient is a 56-year-old female here with generalized body aches, cough, cold, chest congestion 1.5 days. 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 She does note some nausea, vomiting but does not have any neck stiffness or meningeal symptoms on exam. Patient had low-grade fever. Previous provider had strong suspicion for viral syndrome. Signed out to me pending laboratory workup and imaging for hopeful disposition to home. Patient was given 2 tablets of Corolla, 1 L normal saline bolus, 4 mg Zofran ordered by previous provider. CT of the brain and shunt series were negative with actually no evidence of shunt on either study. Vital signs were rechecked and patient was febrile 102.9, though her heart rate is coming down from the 120s to the 110s. She was given 30 mg Toradol. CBC, BMP, urinalysis, influenza were obtained and notable for hematuria with leukocyte esterase and bacteria. Given her fever and tachycardia lactate and blood cultures were added on her lactate was normal. Influenza negative. Fever defervesced to 100.0. Patient reexamined, symptomatically feels improved. She denies any history of IV drug abuse, she complains of pain throughout the body having been off of her analgesics recently no doubt made worse by this illness. She did have a episode of diarrhea here that may be some degree of morphine/opioid withdrawal. My suspicion at this time is likely that this is still viral but with her urine being likely infected she was given dose of Rocephin. Will be discharged home on Keflex. Diagnosis Primary Impression: Urinary tract infection Qualified Code: N30.01 - Acute cystitis with hematuria Additional Impression: Fever Qualified Code: R50.9 - Fever, unspecified fever cause Referrals: Primary Care Physician as needed Additional Instruction: Antibiotics as prescribed. Tylenol, ibuprofen as needed for pain, fever. Follow-up with pain management physician this week as scheduled. Return to the emergency department for the warning signs discussed. Med/Other Pt SpecificInfo: Prescription(s) given Scripts Cephalexin (Keflex)500 Mg Osh689 Mg PO Q8H 7 Days Ref 0 Prov:Pauline Watson MD 11/29/16 Disposition: 01 DISCHARGE HOME Condition: Stable Pauline Watson MD Nov 28, 2016 22:50
[2016-11-28] MEDS ORDERED: LOSA100T PO (22:58)
[2016-11-28] MEDS ORDERED: BUPR150CR PO (22:58)
[2016-11-28] MEDS ORDERED: PRAV40TA2 PO (22:58)
[2016-11-28] MEDS ORDERED: GABA600T PO (22:58)
[2016-11-28] MEDS ORDERED: TOPA50TA7 PO (22:58)
[2016-11-28] MEDS ORDERED: PANT40TA3 PO (22:58)
[2016-11-28] MEDS ORDERED: ZANA4CAP PO (22:58)
[2016-11-28] MEDS ORDERED: RANI150T PO (22:58)
[2016-11-28] MEDS ORDERED: CLON.5 PO (22:58)
[2016-11-28] MEDS ORDERED: MOBI15TA PO (22:58)
[2016-11-28] MEDS ORDERED: LIDO1PAD52 TOPICAL (22:58)
[2016-11-28] MEDS ORDERED: NORC5TAB PO (22:58)
[2016-11-28] MEDS ORDERED: KETOROLAC TROMETHAMINE 30 MG/ML (IVP) VIAL IV PUSH ONE (23:00)
[2016-11-28 23:07] LABS: AUTOMATED NEUTROPHIL # 8.8 TH/MM3 (1.8-7.7); BASOPHIL % 0.2 % (0.0-2.0); EOSINOPHIL % 0.2 % (0.0-4.0); HEMATOCRIT 44.5 % (35.0-46.0); HEMO FLAGS DIFF FINAL; LYMPH % 6.8 % (9.0-44.0); LYMPHOCYTE # 0.7 TH/MM3 (1.0-4.8); MEAN CELL VOLUME 92.3 FL (80.0-100.0); MEAN CORPUSCULAR HEMOGLOBIN 30.7 PG (27.0-34.0); MEAN CORPUSCULAR HGB CONC 33.2 % (32.0-36.0); NEUT % 88.8 % (16.0-70.0); PLATELET COUNT 165 TH/MM3 (150-450); RED BLOOD COUNT 4.82 MIL/MM3 (4.00-5.30); RED CELL DISTRIBUTION WIDTH 14.1 % (11.6-17.2); WHITE BLOOD COUNT 9.9 TH/MM3 (4.0-11.0)
[2016-11-28 23:30] VITALS: TEMP 102.3
[2016-11-28 23:59] LABS: BACTERIA, URINE OCC /hpf; BLOOD, URINE MOD (NEG); GLUCOSE,URINE NEG (NEG); HYALINE CAST, URINE 1 /lpf (RARE); KETONE, URINE NEG (NEG); MUCUS URINE FEW /lpf (OCC); NITRITE,URINE NEG (NEG); SQUAMOUS EPITHELIAL CELL URINE 3 /hpf (0-5); URINE COLOR YELLOW (YELLW/STRAW)
[2016-11-29] LABS: COMMENT (UR) CULT NOT INDICATED; CULTURE IF INDICATED CULT NOT INDICATED
[2016-11-29] MEDS ORDERED: ACETAMINOPHEN 325 MG TAB PO ONE
[2016-11-29 00:03] LABS: BICARBONATE 21.9 MEQ/L (21.0-32.0)
[2016-11-29] MEDS ORDERED: cefTRIAXone INJ 2,000 MG in SODIUM CHLORIDE 0.9% INJ 100 ML IV STA (00:11)
[2016-11-29 00:32] VITALS: PULSE 98; TEMP 100
[2016-11-29] MEDS ORDERED: CEPH-460 PO (00:35)
== END 2016-11-29 01:34 | disposition home or self-care (01) ==
LOC: NEPD 19:24
DX: N30.01 Acute cystitis with hematuria (principal); R50.9 Fever, unspecified; B96.89 Other specified bacterial agents as the cause of diseases classified elsewhere; R00.0 Tachycardia, unspecified; R05 Cough; R11.0 Nausea; I10 Essential (primary) hypertension; Z72.0 Tobacco use; Z98.2 Presence of cerebrospinal fluid drainage device; Z87.39 Personal history of other diseases of the musculoskeletal system and connective tissue; Z86.79 Personal history of other diseases of the circulatory system; Z87.19 Personal history of other diseases of the digestive system; Z86.69 Personal history of other diseases of the nervous system and sense organs; Z86.59 Personal history of other mental and behavioral disorders
CPT/HCPCS: 70250; 70450; 71010; 72040; 74000; 80048; 81001; 83605; 85025; 87040; 87086; 87804; 96361; 96365; 96375; 99284; J0696; J1885; J2405; J7030; P9612

== ENCOUNTER 2017-11-08 13:57 | Inpatient (IN) | payer OTHER, MEDICAID, MEDICARE ==
[2017-11-08] VITALS (7 sets, daily range): BP systolic 83–140; BP diastolic 47–91; PULSE 60–73; RESP 15–20; TEMP 98–98.2; O2SAT 96–99
[~2017-11-08] VITALS: Ht 167.6 cm; Wt 77.0 kg
[~2017-11-08 13:57] MED LIST changes: +BUPR150CR PO; -COZA100T PO; -DICL75 PO; -GABA600T PO; -IBUP-238 PO; -LIDO5DIS35 TD; -LORTA5 PO; +LOSA100T PO; -MELO15 PO; +PANT40TA3 PO; -PRAV10 PO; -PROT40TA PO; -SERT25TA83 PO; -TIZA4 PO; +TOPA50TA7 PO; -TOPI50TA4 PO; -WELL150T PO; -ZOFR4TAB PO
--- NOTE | 2017-11-08 15:33 | RADRPT ---
EXAM DATE/TIME: 11/08/2017 15:06 [facility] COMPARISON: CT BRAIN W/O CONTRAST, June 14, 2017, 18:30. INDICATIONS : Dizzy falling for two days,generalize weakness. RADIATION DOSE: 56.35 CTDIvol (mGy) MEDICAL HISTORY : Hypertension. Renal failure, acute. SURGICAL HISTORY : Tubal ligation. ENCOUNTER: Initial ACUITY: 2 days PAIN SCALE: 10/10 LOCATION: cranial TECHNIQUE: Multiple contiguous axial images were obtained of the head. Using automated exposure control and adj ustment of the mA and/or kV according to patient size, radiation dose was kept as low as reasonably a chievable to obtain optimal diagnostic quality images. DICOM format image data is available electro nically for review and comparison. FINDINGS: CEREBRUM: The ventricles are normal for age. No evidence of midline shift, mass lesion, hemorrhage or acute in farction. No extra-axial fluid collections are seen. POSTERIOR FOSSA: The cerebellum and brainstem are intact. The 4th ventricle is midline. The cerebellopontine angle i s unremarkable. EXTRACRANIAL: The visualized portion of the orbits is intact. SKULL: The calvaria is intact. No evidence of skull fracture. CONCLUSION: 1. Negative noncontrast CT brain. Moises Matute MD on November 08, 2017 at 15:30 Board Certified Radiologist. This report was verified electronically.
[2017-11-08 16:01] LABS: AUTOMATED NEUTROPHIL # 3.5 TH/MM3 (1.8-7.7); BASOPHIL # 0.1 TH/MM3 (0-0.2); BASOPHIL % 0.8 % (0.0-2.0); EOSINOPHIL # 0.1 TH/MM3 (0-0.4); EOSINOPHIL % 1.9 % (0.0-4.0); HEMOGLOBIN 13.1 GM/DL (11.6-15.3); LYMPH % 31.4 % (9.0-44.0); MEAN CELL VOLUME 89.3 FL (80.0-100.0); MEAN CORPUSCULAR HEMOGLOBIN 29.9 PG (27.0-34.0); MEAN CORPUSCULAR HGB CONC 33.4 % (32.0-36.0); MONO % 9.9 % (0.0-8.0); MONOCYTE # 0.6 TH/MM3 (0-0.9); PLATELET COUNT 190 TH/MM3 (150-450); RED BLOOD COUNT 4.37 MIL/MM3 (4.00-5.30); RED CELL DISTRIBUTION WIDTH 19.2 % (11.6-17.2); WHITE BLOOD COUNT 6.3 TH/MM3 (4.0-11.0)
--- NOTE | 2017-11-08 16:10 | RADRPT ---
EXAM DATE/TIME: 11/08/2017 15:06 [facility] COMPARISON: CT BRAIN W/O CONTRAST, June 14, 2017, 18:30. INDICATIONS : Falling for the last two days RADIATION DOSE: 21.96 CTDIvol (mGy) MEDICAL HISTORY : Hypertension. Renal failure, acute. SURGICAL HISTORY : Tubal ligation. ENCOUNTER: Initial ACUITY: 2 days PAIN SCALE: 10/10 LOCATION: neck TECHNIQUE: Volumetric scanning of the cervical spine was performed. Multiplanar reconstructions in the sagittal, coronal and oblique axial planes were performed. Using automated exposure control and adjustment o f the mA and/or kV according to patient size, radiation dose was kept as low as reasonably achievable to obtain optimal diagnostic quality images. DICOM format image data is available electronically f or review and comparison. FINDINGS: Thin section axial imaging of the cervical spine was performed. Sagittal and coronal imaging demonstrate slight anterior subluxation of C5 relative to C6. There are degenerated disc at C4/5, C5/6 and C6/7. No acute fracture is identified. C1/2: No acute bony abnormality identified. C2/3: The thecal space and foramina are adequate. There is moderate facet arthritis on the left. C3/4: The thecal space and neural foramina are adequate. There is moderate facet arthritis on the left. C4/5: There is minimal disc bulge. The facet joints demonstrate mild arthritic changes bilaterally. The the mary space and neural foramina are adequate. C5/6: There is a degenerated disc. There is minimal disc bulge and osteophytic ridging from the vertebral e ndplates. There is mild facet arthritis bilaterally. The thecal space and foramina are adequate. C6/7: There is a small broad-based disc bulge. There is mild facet arthritis bilaterally. Thecal space and foramina are adequate. C7/T1: The thecal space is adequate. The neural foramina are adequate. No significant abnormality is identif ied. CONCLUSION: Degenerative changes in the cervical spine as above. No acute cervical fracture identified. Rene Sarabia MD on November 08, 2017 at 15:35 Board Certified Radiologist. This report was verified electronically.
[2017-11-08 16:19] LABS: INTERNATIONAL NORMALIZED RATIO 1.1 RATIO; PROTHROMBIN TIME - PATIENT 10.9 SEC (9.8-11.6)
[2017-11-08 16:26] LABS: ALBUMIN 3.1 GM/DL (3.4-5.0); AST (GOT) 225 U/L (15-37); BICARBONATE 22.4 MEQ/L (21.0-32.0); BLOOD UREA NITROGEN 19 MG/DL (7-18); CALCIUM 8.9 MG/DL (8.5-10.1); CHLORIDE 106 MEQ/L (98-107); GLOMERULAR FILTRATION RATE 20 ML/MIN (>89); GLUCOSE,RANDOM 111 MG/DL (74-106); MAGNESIUM 2.6 MG/DL (1.5-2.5); SODIUM (NA) 137 MEQ/L (136-145)
[2017-11-08 16:27] LABS: ALT (GPT) 370 U/L (10-53)
[2017-11-08 16:31] LABS: ALKALINE PHOSPHATASE 177 U/L (45-117); TOTAL BILIRUBIN ADULT 2.3 MG/DL (0.2-1.0); TOTAL PROTEIN 7.6 GM/DL (6.4-8.2); TROPONIN I LESS THAN 0.02 NG/ML (0.02-0.05)
[2017-11-08] MEDS ORDERED: SODIUM CHLOR 0.9% 1000 ML INJ 1,000 ML IV ONE ×3 (16:45→19:30)
--- NOTE | 2017-11-08 16:58 | PD ---
HPI Chief Complaint: Neuro Symptoms/ Deficits Time Seen by Provider: 16:18 Travel History International Travel<30 days: No Contact w/Intl Traveler<30days: No Traveled to known affect area: No History of Present Illness HPI Patient is a 57-year-old female presents emergency department for evaluation of altered mental status. She is here with her fianc. He states they went fishing today and all of a sudden she became very weak and fell down one time. He states for the past few days his weakness is been intermittent but progressive at the same time. She states that the last time this happened she was diagnosed with kidney failure and admitted to the hospital. The patient is significantly altered on arrival with a GCS of 13 is unable to provide any additional history. The patient's fianc knows that she is on something for stomach acid and is on some psychiatric medicines but he does not know what they are. According to the last visit on June 14 the patient was on Wellbutrin losartan pantoprazole ranitidine and Topamax at that time. Patient was seen by Dr. Grimaldo at that time we documented a history similar to today's with clumsy hands and progressive altered mental status. At that time she was positive for opiates and cocaine, she was found to be with an acute kidney injury with a creatinine of 2.5 minutes of total CK mildly elevated at 761. She was admitted given IV fluids and did fairly well. No further history is available at this time given the patient's altered mental status PFSH Past Medical History Arthritis: Yes Autoimmune Disease: No Blood Disorders: No Anxiety: Yes Depression: Yes Heart Rhythm Problems: No Cancer: No Cardiovascular Problems: Yes (HTN) High Cholesterol: Yes Chemotherapy: No Congestive Heart Failure: No Cerebrovascular Accident: No Diabetes: No Endocrine: No Gastrointestinal Disorders: Yes GERD: Yes Genitourinary: No Headaches: Yes Hepatitis: No Hiatal Hernia: No Hypertension: Yes Immune Disorder: No Implanted Vascular Access Dvce: Yes Kidney Stones: No Musculoskeletal: Yes (NUMBNESS LEFT WRIST) Neurologic: Yes ( NERUOPATHY, SPINAL CORD ILLNESS) Psychiatric: No Reproductive: No Respiratory: Yes Migraines: Yes Myocardial Infarction: No Radiation Therapy: No Renal Failure: No Seizures: Yes Sleep Apnea: No Tetanus Vaccination: < 5 Years ?: Not Menopausal: Yes : 4 Para: 3 : 1 Tubal Ligation: Yes Past Surgical History Arteriovenous Shunt: Yes (neck ) Cardiac Surgery: No Cholecystectomy: No Gynecologic Surgery: Yes (breast augmentation) Neurologic Surgery: Yes (NECK) Pacemaker: No Other Surgery: Yes (BREAST AUGMENTATION; 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) Social History Alcohol Use: No Tobacco Use: Yes (5-7 CIGARETTES DAILY) Substance Use: Yes (MARIJUANA, COCAINE HX) Allergies-Medications (Allergen,Severity, Reaction): Coded Allergies: *MDRO Multi-Drug Resistant Organism (Unverified Allergy, Unknown, 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 SKIN: Focused skin assessment warm/dry. Patient does have bruising on bilateral forearms that her fianc states is from her falling down a lot. No frausto signs no raccoons eyes. HEAD: Atraumatic. Normocephalic. EYES: Pupils equal and round. No scleral icterus. No injection or drainage. ENT: No nasal bleeding or discharge. Mucous membranes pink and moist. NECK: Trachea midline. No JVD. CARDIOVASCULAR: Regular rate and rhythm. No murmur appreciated. RESPIRATORY: No accessory muscle use. Clear to auscultation. Breath sounds equal bilaterally. GASTROINTESTINAL: Abdomen soft, non-tender, nondistended. Hepatic and splenic margins not palpable. MUSCULOSKELETAL: No obvious deformities. No clubbing. No cyanosis. No edema. NEUROLOGICAL: Awake and alert. GCS of 13, require sternal rub to open her eyes but then follows commands in all 4 extremities and cranial nerves appear to be intact. The patient then falls back asleep as soon as the cranial nerve exam is finished PSYCHIATRIC: Appropriate mood and affect; insight and judgment normal. Data Data Last Documented VS Vital Signs Date Time Temp Pulse Resp B/P (MAP) Pulse Ox O2 Delivery O2 Flow Rate FiO2 11/08/17 18:00 62 16 116/76 (89) 96 Room Air 11/08/17 14:09 98.0 Orders Orders Electrocardiogram (11/08/17 14:13) Complete Blood Count With Diff (11/08/17 14:13) Comprehensive Metabolic Panel (11/08/17 14:13) Magnesium (Mg) (11/08/17 14:13) Ckmb (Isoenzyme) Profile (11/08/17 14:13) Troponin I (11/08/17 14:13) Act Partial Throm Time (Ptt) (11/08/17 14:13) Prothrombin Time / Inr (Pt) (11/08/17 14:13) Urinalysis - C+S If Indicated (11/08/17 14:13) Ct Brain W/O Iv Contrast(Rout) (11/08/17 14:13) Ct Cerv Spine W/O Contrast (11/08/17 14:13) Cath For Specimen (11/08/17 16:18) Ammonia (11/08/17 16:37) Drug Screen, Random Urine (11/08/17 16:42) Alcohol (Ethanol) (11/08/17 16:42) Lactic Acid (11/08/17 16:42) Chest, Single Ap (11/08/17 ) Blood Gas Venous (Vbg) (11/08/17 16:42) Sodium Chlor 0.9% 1000 Ml Inj (Ns 1000 M (11/08/17 16:45) Sodium Chlor 0.9% 1000 Ml Inj (Ns 1000 M (11/08/17 16:45) Tylenol (Acetaminophen) (11/08/17 16:59) Salicylates (Aspirin) (11/08/17 16:59) Admit Order (Ed Use Only) (11/08/17 ) Labs Laboratory Tests Test 11/08/17 15:28 11/08/17 17:05 11/08/17 17:10 11/08/17 17:20 White Blood Count 6.3 TH/MM3 Red Blood Count 4.37 MIL/MM3 Hemoglobin 13.1 GM/DL Hematocrit 39.0 % Mean Corpuscular Volume 89.3 FL Mean Corpuscular Hemoglobin 29.9 PG Mean Corpuscular Hemoglobin Concent 33.4 % Red Cell Distribution Width 19.2 % Platelet Count 190 TH/MM3 Mean Platelet Volume 9.0 FL Neutrophils (%) (Auto) 56.0 % Lymphocytes (%) (Auto) 31.4 % Monocytes (%) (Auto) 9.9 % Eosinophils (%) (Auto) 1.9 % Basophils (%) (Auto) 0.8 % Neutrophils # (Auto) 3.5 TH/MM3 Lymphocytes # (Auto) 2.0 TH/MM3 Monocytes # (Auto) 0.6 TH/MM3 Eosinophils # (Auto) 0.1 TH/MM3 Basophils # (Auto) 0.1 TH/MM3 CBC Comment DIFF FINAL Differential Comment Prothrombin Time 10.9 SEC Prothromb Time International Ratio 1.1 RATIO Activated Partial Thromboplast Time 28.5 SEC Blood Urea Nitrogen 19 MG/DL Creatinine 2.50 MG/DL Random Glucose 111 MG/DL Total Protein 7.6 GM/DL Albumin 3.1 GM/DL Calcium Level 8.9 MG/DL Magnesium Level 2.6 MG/DL Alkaline Phosphatase 177 U/L Aspartate Amino Transf (AST/SGOT) 225 U/L Alanine Aminotransferase (ALT/SGPT) 370 U/L Total Bilirubin 2.3 MG/DL Sodium Level 137 MEQ/L Potassium Level 3.8 MEQ/L Chloride Level 106 MEQ/L Carbon Dioxide Level 22.4 MEQ/L Anion Gap 9 MEQ/L Estimat Glomerular Filtration Rate 20 ML/MIN Total Creatine Kinase 22 U/L Troponin I LESS THAN 0.02 NG/ML Blood Gas Puncture Site LINE Blood Gas Patient Temperature 98.6 Venous Blood pH 7.27 Venous Blood Partial Pressure CO2 55 mmHg Venous Blood Partial Pressure O2 33 mmHg Venous Blood HCO3 25 mmol/L Venous Blood Oxygen Saturation 57 % Venous Blood Oxygen Content 10.1 Vol % Venous Blood Base Excess -1.4 mmol/L Oxygen Delivery Device RA Ethyl Alcohol Level LESS THAN 3 MG/DL Ammonia 37 MCMOL/L Salicylates Level LESS THAN 1.7 MG/DL Acetaminophen Level LESS THAN 2.0 MCG/ML Test 11/08/17 17:36 11/08/17 17:39 Lactic Acid Level 1.1 mmol/L Urine Opiates Screen POS Urine Barbiturates Screen NEG Urine Amphetamines Screen NEG Urine Benzodiazepines Screen NEG Urine Cocaine Screen POS Urine Cannabinoids Screen NEG MDM Medical Decision Making Medical Screen Exam Complete: Yes Emergency Medical Condition: Yes Interpretation(s) EKG shows normal sinus rhythm normal axis normal R-wave progression. No ST segment changes. The intervals are within normal limits. There are some Q waves in 3 and aVF of undetermined significance. This is borderline EKG per Differential Diagnosis Altered mental status, head injury, neck injury, electrolyte abnormality, hypercapnia, elevated ammonia level, lactic acidosis, pneumonia, UTI, dehydration, rhabdomyolysis Narrative Course Patient room to the emergency department, history is not helpful to determine the patient's altered mental status, she is appearing to protect her airway and is saturating well, she arouses to sternal rub easily. The patient CT head and C-spine negative, she does have elevated LFTs and hepatobiliary pattern, ammonia level was added, lactic acid was added, Tylenol and salicylate were also added. Initial workup fairly unremarkable, Tylenol negative, pH did show some respiratory acidosis which was acute however the patient is protecting her airway and saturating well. My suspicion is that she has had some sort of substance ingestion, she was positive for cocaine in the emergency department. She does require some painful stimuli to wake up when she does she is able to talk some. She protecting her airway she was discussed with Dr. Levine and Dr. Stone for admission. Her boyfriend has just gone home and will return to give additional history as necessary. Diagnosis Primary Impression: Acute kidney injury Additional Impression: Encephalopathy Admitting Information Admitting Physician Requests: Admit Condition: Stable Chan Randhawa MD Nov 08, 2017 16:58
--- NOTE | 2017-11-08 17:08 | RADRPT ---
EXAM DATE/TIME: 11/08/2017 16:49 [facility] COMPARISON: CHEST SINGLE AP, June 14, 2017, 17:17. INDICATIONS : Short of breath MEDICAL HISTORY : Hypertension. Renal failure, acute. SURGICAL HISTORY : Tubal ligation. ENCOUNTER: Initial ACUITY: 1 day PAIN SCORE: Non-responsive. LOCATION: chest FINDINGS: The heart appears mildly enlarged. There is mild diffuse interstitial prominence similar to previous dated 06/14/17. There is no pleural effusion. Heart the visualized bony structures are grossly intact . CONCLUSION: 1. Chronic appearing interstitial changes and cardiomegaly. Stable compared to previous. Rene Sarabia MD on November 08, 2017 at 17:05 Board Certified Radiologist. This report was verified electronically.
[2017-11-08] MEDS ORDERED: NALOXONE HCL 0.4 MG/ML AMP IV PUSH PRN (19:30)
[2017-11-08] MEDS ORDERED: SODIUM CHLORIDE 0.9% FLUSH 10 ML FLUSH IV FLUSH PRN (19:30)
--- NOTE | 2017-11-08 20:03 | RADRPT ---
EXAM DATE/TIME: 11/08/2017 19:34 [facility] COMPARISON: CHEST SINGLE AP, November 08, 2017, 16:49. INDICATIONS : Syncope. Altered mental status. MEDICAL HISTORY : Hypertension. Renal failure, acute. SURGICAL HISTORY : Tubal ligation. ENCOUNTER: Subsequent ACUITY: 1 day PAIN SCORE: Non-responsive. LOCATION: Bilateral chest FINDINGS: A single view of the chest demonstrates the lungs to be symmetrically aerated without evidence of mas s, infiltrate or effusion. The cardiomediastinal contours are unremarkable. Osseous structures are intact. CONCLUSION: No acute disease. Chidi Julian MD on November 08, 2017 at 20:00 Board Certified Radiologist. This report was verified electronically.
--- NOTE | 2017-11-08 20:40 | HHI.HP ---
HPI Service [facility] Primary Care Physician Unknown Admission Diagnosis KAUSHAL, ALtered mental status, Dehydration. Diagnoses: Travel History International Travel<30 Days: No Contact w/Intl Traveler <30 Da: No Traveled to Known Affected Are: No History of Present Illness 57-year-old female with a past medical history significant for chronic pain, migraines and GERD presents to the emergency department for evaluation of altered mental status. The patient will arouse to sternal rub however will not participate in my interview and does not follow commands or answer questions. Per emergency department documentation the patient presented with her fianc. The fianc stated that they were fishing today when all of a sudden the patient became very weak and fell. He states that for the past few days this weakness has been intermittent but progressive. Unable to obtain any history from the patient herself and no family members or fianc were bedside at the time of my examination. Review of Systems Unable to obtain secondary to patient's clinical condition. Past Family Social History Past Medical History (Obtained from medical records) Recurrent urinary tract infection GERD Chronic pain Migraines Past Surgical History Repair of nasal septal fracture C5-C7 laminectomy with cysto-subarachnoid shunting Reported Medications Reported Meds & Active Scripts Active Reported Wellbutrin SR 12 HR (Bupropion HCl) 150 Mg Tab 150 Mg PO BID Losartan (Losartan Potassium) 100 Mg Tab 100 Mg PO HS Pantoprazole (Pantoprazole Sodium) 40 Mg Tab 40 Mg PO BID Ranitidine (Ranitidine HCl) 150 Mg Tab 150 Mg PO HS Topamax (Topiramate) 50 Mg Tab 50 Mg PO TID Allergies: Coded Allergies: *MDRO Multi-Drug Resistant Organism (Unverified Allergy, Unknown, 11/08/17) MRSA 2013 Family History Both parents with CAD and diabetes mellitus. Social History Positive tobacco. Remainder of social history unable to be obtained. Physical Exam Vital Signs Vital Signs Date Time Temp Pulse Resp B/P (MAP) Pulse Ox O2 Delivery O2 Flow Rate FiO2 11/08/17 20:04 11/08/17 19:34 68 15 129/84 (99) 98 Room Air 11/08/17 18:00 62 16 116/76 (89) 96 Room Air 11/08/17 17:00 60 16 93/63 (73) 96 Room Air 11/08/17 16:00 68 16 83/56 (65) 97 Room Air 11/08/17 14:09 98.0 73 20 94/47 (63) 97 Physical Exam GENERAL: female lying in bed, disheveled SKIN: Bilateral forearm bruising HEAD: Atraumatic. Normocephalic. No temporal or scalp tenderness. EYES: Pupils equal round and reactive. No scleral icterus. No injection or drainage. ENT: Nose without bleeding, purulent drainage or septal hematoma. Airway patent. NECK: Trachea midline. No JVD or lymphadenopathy. CARDIOVASCULAR: Regular rate and rhythm without murmurs, gallops, or rubs. RESPIRATORY: Clear to auscultation. Breath sounds equal bilaterally. No wheezes , rales, or rhonchi. GASTROINTESTINAL: Abdomen soft, non-tender, nondistended. No hepato-splenomegaly , or palpable masses. MUSCULOSKELETAL: Extremities without clubbing, cyanosis, or edema. No joint tenderness, effusion, or edema noted. NEUROLOGICAL: Arouses only to sternal rub. Opens and tracks with eyes. Does not answer questions or participate in exam. Laboratory Laboratory Tests Test 11/08/17 15:28 11/08/17 17:05 11/08/17 17:10 11/08/17 17:20 White Blood Count 6.3 Red Blood Count 4.37 Hemoglobin 13.1 Hematocrit 39.0 Mean Corpuscular Volume 89.3 Mean Corpuscular Hemoglobin 29.9 Mean Corpuscular Hemoglobin Concent 33.4 Red Cell Distribution Width 19.2 Platelet Count 190 Mean Platelet Volume 9.0 Neutrophils (%) (Auto) 56.0 Lymphocytes (%) (Auto) 31.4 Monocytes (%) (Auto) 9.9 Eosinophils (%) (Auto) 1.9 Basophils (%) (Auto) 0.8 Neutrophils # (Auto) 3.5 Lymphocytes # (Auto) 2.0 Monocytes # (Auto) 0.6 Eosinophils # (Auto) 0.1 Basophils # (Auto) 0.1 CBC Comment DIFF FINAL Differential Comment Prothrombin Time 10.9 Prothromb Time International Ratio 1.1 Activated Partial Thromboplast Time 28.5 Blood Urea Nitrogen 19 Creatinine 2.50 Random Glucose 111 Total Protein 7.6 Albumin 3.1 Calcium Level 8.9 Magnesium Level 2.6 Alkaline Phosphatase 177 Aspartate Amino Transf (AST/SGOT) 225 Alanine Aminotransferase (ALT/SGPT) 370 Total Bilirubin 2.3 Sodium Level 137 Potassium Level 3.8 Chloride Level 106 Carbon Dioxide Level 22.4 Anion Gap 9 Estimat Glomerular Filtration Rate 20 Total Creatine Kinase 22 Troponin I LESS THAN 0.02 Blood Gas Puncture Site LINE Blood Gas Patient Temperature 98.6 Venous Blood pH 7.27 Venous Blood Partial Pressure CO2 55 Venous Blood Partial Pressure O2 33 Venous Blood HCO3 25 Venous Blood Oxygen Saturation 57 Venous Blood Oxygen Content 10.1 Venous Blood Base Excess -1.4 Oxygen Delivery Device RA Ethyl Alcohol Level LESS THAN 3 Ammonia 37 Salicylates Level LESS THAN 1.7 Acetaminophen Level LESS THAN 2.0 Test 11/08/17 17:36 11/08/17 17:39 Lactic Acid Level 1.1 Urine Opiates Screen POS Urine Barbiturates Screen NEG Urine Amphetamines Screen NEG Urine Benzodiazepines Screen NEG Urine Cocaine Screen POS Urine Cannabinoids Screen NEG Result Diagram: 11/08/17 1528 11/08/17 1528 Caprini VTE Risk Assessment Caprini VTE Risk Assessment: No/Low Risk (score <= 1) Caprini Risk Assessment Model Point Value = 1 Point Value = 2 Point Value = 3 Point Value = 5 Age 41-60 Minor surgery BMI > 25 kg/m2 Swollen legs Varicose veins or History of unexplained or recurrent spontaneous Oral contraceptives or hormone replacement Sepsis (< 1 month) Serious lung disease, including pneumonia (< 1 month) Abnormal pulmonary function Acute myocardial infarction Congestive heart failure (< 1 month) History of inflammatory bowel disease Medical patient at bed rest Age 61-74 Arthroscopic surgery Major open surgery (> 45 min) Laparoscopic surgery (> 45 min) Malignancy Confined to bed (> 72 hours) Immobilizing plaster cast Central venous access Age >= 75 History of VTE Family history of VTE Factor V Leiden Prothrombin [id number] Lupus anticoagulant Anticardiolipin antibodies Elevated serum homocysteine Heparin-induced thrombocytopenia Other congenital or acquired thrombophilia Stroke (< 1 month) Elective arthroplasty Hip, pelvis, or leg fracture Acute spinal cord injury (< 1 month) Prophylaxis Regimen Total Risk Factor Score Risk Level Prophylaxis Regimen 0-1 Low Early ambulation 2 Moderate Order ONE of the following: *Sequential Compression Device (SCD) *Heparin 5000 units SQ BID 3-4 Higher Order ONE of the following medications: *Heparin 5000 units SQ TID *Enoxaparin/Lovenox 40 mg SQ daily (WT < 150 kg, CrCl > 30 mL/min) *Enoxaparin/Lovenox 30 mg SQ daily (WT < 150 kg, CrCl > 10-29 mL/min) *Enoxaparin/Lovenox 30 mg SQ BID (WT < 150 kg, CrCl > 30 mL/min) AND/OR *Sequential Compression Device (SCD) 5 or more Highest Order ONE of the following medications: *Heparin 5000 units SQ TID (Preferred with Epidurals) *Enoxaparin/Lovenox 40 mg SQ daily (WT < 150 kg, CrCl > 30 mL/min) *Enoxaparin/Lovenox 30 mg SQ daily (WT < 150 kg, CrCl > 10-29 mL/min) *Enoxaparin/Lovenox 30 mg SQ BID (WT < 150 kg, CrCl > 30 mL/min) AND *Sequential Compression Device (SCD) Assessment and Plan Assessment and Plan Assessment/plan: 1. Acute renal failure Creatinine 2.50, baseline 0.67 IV fluid hydration Monitor renal function If kidney function does not improve, consider nephrology consult 2. Altered mental status/weakness/falls Head CT, cervical spine CT without acute process Suspect foreign substance ingestion versus overuse of home medications Urine drug screen positive for cocaine Supportive care and monitor 3. Chronic pain/migraines Holding home Topamax for altered mental status FEN Heart healthy diet Electrolytes: monitor and replete prn NS at 100 cc/hr Tanya Stone MD Nov 08, 2017 20:40
[2017-11-08] MEDS: SODIUM CHLORIDE 0.9% FLUSH 10 ML FLUSH IV FLUSH SCH (22:11)
[2017-11-08] MEDS ORDERED: MORP1TAB24 PO (22:13)
[2017-11-09] VITALS (7 sets, daily range): BP systolic 120–144; BP diastolic 70–84; PULSE 56–70; RESP 16–18; TEMP 97.5–98.4; O2SAT 96–98
[2017-11-09] MEDS: SODIUM CHLOR 0.9% 1000 ML INJ 1,000 ML IV SCH ×3 (02:00→16:00)
[2017-11-09 07:06] LABS: AUTOMATED NEUTROPHIL # 1.8 TH/MM3 (1.8-7.7); BASOPHIL % 0.4 % (0.0-2.0); EOSINOPHIL # 0.1 TH/MM3 (0-0.4); HEMATOCRIT 36.4 % (35.0-46.0); LYMPH % 34.9 % (9.0-44.0); LYMPHOCYTE # 1.2 TH/MM3 (1.0-4.8); MEAN CELL VOLUME 89.6 FL (80.0-100.0); MEAN CORPUSCULAR HEMOGLOBIN 29.6 PG (27.0-34.0); MEAN PLATELET VOLUME 9.3 FL (7.0-11.0); MONO % 11.3 % (0.0-8.0); MONOCYTE # 0.4 TH/MM3 (0-0.9); NEUT % 51.4 % (16.0-70.0); PLATELET COUNT 149 TH/MM3 (150-450); RED BLOOD COUNT 4.06 MIL/MM3 (4.00-5.30); RED CELL DISTRIBUTION WIDTH 18.7 % (11.6-17.2); WHITE BLOOD COUNT 3.5 TH/MM3 (4.0-11.0)
[2017-11-09 07:49] LABS: BICARBONATE 22.1 MEQ/L (21.0-32.0); CALCIUM 8.1 MG/DL (8.5-10.1); CREATININE 1.54 MG/DL (0.50-1.00)
[2017-11-09] MEDS ORDERED: LACTULOSE SYRUP 20 GM/30 ML CUP PO ONE (08:45)
[2017-11-09] MEDS: SODIUM CHLORIDE 0.9% FLUSH 10 ML FLUSH IV FLUSH SCH ×2 (09:00→20:55)
[2017-11-09 10:13] LABS: ALBUMIN 2.6 GM/DL (3.4-5.0); DIRECT BILIRUBIN ADULT 1.1 MG/DL (0.0-0.2)
[2017-11-09 10:15] LABS: INDIRECT BILIRUBIN 0.5 MG/DL (0.0-0.8); TOTAL BILIRUBIN ADULT 1.6 MG/DL (0.2-1.0); TOTAL PROTEIN 6.4 GM/DL (6.4-8.2)
--- NOTE | 2017-11-09 12:50 | HHI.PR ---
Subjective Remarks Follow up for encephalopathy. The patient is seen with male friend at bedside. The patient is AAOx4. She does not remember all the events leading up to her admission. The friend reports she was feeling more "shaky" yesterday so he had her take an extra Klonopin prior to them going fishing, then she became very weak and [place]. The patient does not recall the fall but does remember feeling shaky. She reports she sees pain management Dr. Gregorio. She states she is prescribed oramorph, klonopin, flexeril. She states the klonopin and flexeril are new to her since July. She states she usually takes the klonopin and flexeril only at night, however she took that extra klonopin in the morning. Discussed her UDS positive for cocaine, patient does not admit to this. Also discussed her abnormal liver function and renal function. Patient denies any prior diagnosis of liver disease such as cirrhosis or hepatitis. Denies any excessive alcohol use. She also denies any prior history of CKD. Today the patient denies any headache, lightheadedness, dizziness, chest pain, palpitations, shortness of breath, abdominal pain, nausea/vomiting, diarrhea, constipation, or urinary complaints. She is hungry and wants more food. Objective Vitals Vital Signs Date Time Temp Pulse Resp B/P (MAP) Pulse Ox O2 Delivery O2 Flow Rate FiO2 11/09/17 11:50 98.1 69 18 131/72 (91) 98 11/09/17 07:52 58 11/09/17 07:35 98.3 58 16 135/82 (99) 96 11/09/17 04:11 97.5 56 17 120/70 (87) 96 11/09/17 03:00 62 11/08/17 23:47 98.0 66 16 122/72 (89) 99 11/08/17 21:01 98.2 65 16 140/91 (107) 99 11/08/17 20:04 11/08/17 19:34 68 15 129/84 (99) 98 Room Air 11/08/17 18:00 62 16 116/76 (89) 96 Room Air 11/08/17 17:00 60 16 93/63 (73) 96 Room Air 11/08/17 16:00 68 16 83/56 (65) 97 Room Air 11/08/17 14:09 98.0 73 20 94/47 (63) 97 I/O 11/08/17 11/08/17 11/08/17 11/09/17 11/09/17 11/09/17 07:00 15:00 23:00 07:00 15:00 23:00 Intake Total 2000 ml Balance 2000 ml Intake IV Total 2000 ml Result Diagram: 11/09/17 0610 11/09/17 0610 Imaging Last Impressions Head CT 11/08/17 1413 Signed Impressions: Service Date/Time: Wednesday, November 08, 2017 15:06 - CONCLUSION: 1. Negative noncontrast CT brain. Moiess Matute MD Cervical Spine CT 11/08/17 1413 Signed Impressions: Service Date/Time: Wednesday, November 08, 2017 15:06 - CONCLUSION: Degenerative changes in the cervical spine as above. No acute cervical fracture identified. Rene Sarabia MD Chest X-Ray 11/08/17 0000 Signed Impressions: Service Date/Time: Wednesday, November 08, 2017 19:34 - CONCLUSION: No acute disease. Chidi Julian MD Objective Remarks GENERAL: Well-nourished, well-developed middle aged female patient in [facility]. SKIN: Warm and dry. No rash. HEENT: Normocephalic. Atraumatic.Pupils equal and round. Mucous membranes pink and moist. NECK: Supple. Trachea midline. CARDIOVASCULAR: Regular rate and rhythm. No murmur appreciated. RESPIRATORY: No accessory muscle use. Clear to auscultation. Breath sounds equal bilaterally. GASTROINTESTINAL: Abdomen soft, non-tender, nondistended. Normoactive bowel sounds x4. MUSCULOSKELETAL: No obvious deformities. Extremities without clubbing, cyanosis , or edema. NEUROLOGICAL: Awake and alert. No obvious cranial nerve deficits. Motor grossly within normal limits. 5/5 muscle strength in bilateral upper and lower extremities. Normal speech. PSYCHIATRIC: Appropriate mood and affect; insight and judgment normal. Medications and IVs Current Medications Medications (Trade) Dose Ordered Sig/Johanna Route Start Time Stop Time Status Last Admin Sodium Chloride 1,000 ml @ 100 mls/hr Q10H IV 11/08/17 20:00 11/09/17 10:06 (NS Flush) 2 ml UNSCH PRN IV FLUSH 11/08/17 19:30 (NS Flush) 2 ml BID IV FLUSH 11/08/17 21:00 11/08/17 22:11 (Narcan Inj) 0.4 mg UNSCH PRN IV PUSH 11/08/17 19:30 (Vasotec Inj) 2.5 mg Q6H PRN IV PUSH 11/08/17 20:30 (Lactulose Liq) 30 ml BID PO 11/09/17 21:00 A/P Assessment and Plan 57-year-old female with a past medical history significant for chronic pain, migraines and GERD presents to the emergency department for evaluation of altered mental status. Acute Encephalopathy with Weakness/Fall: suspect toxic secondary to polysubstance abuse in combination with hepatic encephalopathy secondary to hyperammonemia. -Head CT and C-spine CT negative for any acute findings -UDS positive for cocaine and opiates -contacted patient's pain management office Dr. Gregorio, patient goes by the name of "Belen Tucker" at their office and fills prescriptions under that name, confirmed with nurse at Dr. Gregorio's office and on [facility] that patient is prescribed Oramorph, Flexeril, Klonopin, and Topamax -provided Dr. Gregorio's office with UDS results via fax -treat hyperammonemia with lactulose, see below -give IVF hydration for KAUSHAL -monitor neuro checks -avoid sedating medications, holding home meds for now -patient improving Acute renal failure: Creatinine 2.50 upon arrival, baseline 0.67. Suspect secondary to dehydration. -Give IVF hydration -Avoid nephrotoxins -Monitor BMP, renal function improving with Cr 1.54 today -Repeat BMP in am Transaminitis/Hyperammonemia: patient denies any hx of cirrhosis or heavy alcohol use. Labs on previous admission with LFTs wnl. -repeat LFTs still elevated, no GI symptoms -give lactulose 30mg bid -check hepatitis panel -consult gastroenterology -checking liver U/S -repeat LFTs in am Chronic pain/migraines/depression/anxiety: chronic -continue patient's Topamax and Wellbutrin -holding patient's Oramorph, Flexeril, Klonopin for now given encephalopathy as above -patient sees Dr. Gregorio for pain management under the name "Belen Ceballos ", notified Dr. Gregorio's office of admission and drug screen results DVT Prophylaxis: teds/SCDs I spent 35 minutes [id number] with the patient or on the padgett discussing the patient's disposition, prognosis, and plan of care with her caregivers. Over half the time spent was devoted to counseling the patient regarding placement in coordinating care with caregivers and case management. Cheryl Dunne PA-C Nov 09, 2017 12:50 pm
--- NOTE | 2017-11-09 14:41 | PD.CONS ---
HPI History of Present Illness This is a 57 year old female with hx chronic pain, migraines, GERD who presented with AMS. She says she has been falling and hurting herself. Reportedly she was fishing and became weak and fell. She had worsening weakness for the last few days.GI has been consulted for elevated LFTs. She had a previous episode 06/2017 of AMS and clumsiness and says she was told in ER she might have liver failure. During that visit, per EMR, she became unrepsonsive but did improve some with Narcan. At that time her drug screen was pos for cocaine. Her LFTs were not elevated at that visit. She is c/o lower abd pain but cannot provide further details. Denies blood in stool, black tarry stool, n/v. Denies prior hx liver problems. Denies etoh currently or ever having been heavy drinker. She uses morphine regularly. Per EMR she takes wellbutrin, losartan, pantoprazole, zantac, topiramate. Her drug screen this visit is pos for cocaine. She had EGD at an office in [place] 2 y ago, normal per pt. Never had colonoscopy. Poor historian. (Ludy Barakat) PFSH Past Medical History (Obtained from medical records) Recurrent urinary tract infection GERD Chronic pain Migraines Past Surgical History Repair of nasal septal fracture C5-C7 laminectomy with cysto-subarachnoid shunting (Ludy Barakat) Coded Allergies: *MDRO Multi-Drug Resistant Organism (Unverified Allergy, Unknown, 11/08/17) MRSA 2013 Family History Both parents with CAD and diabetes mellitus. Social History Positive tobacco, 5 cigarettes daily. denies etoh. denies illicit drug use but pos for cocaine (Ludy Barakat) Review of Systems Constitutional: COMPLAINS OF: Dizziness, DENIES: Fever Endocrine: DENIES: Polydipsia Eyes: DENIES: Blurred vision Ears, nose, mouth, throat: DENIES: Hearing loss Respiratory: DENIES: Cough Cardiovascular: DENIES: Chest pain Gastrointestinal: COMPLAINS OF: Abdominal pain, DENIES: Black stools, Bloody stools, Nausea, Vomiting (Ludy Barakat) GI Exam Vitals I&O Vital Signs Date Time Temp Pulse Resp B/P (MAP) Pulse Ox O2 Delivery O2 Flow Rate FiO2 11/09/17 11:50 98.1 69 18 131/72 (91) 98 11/09/17 07:52 58 11/09/17 07:35 98.3 58 16 135/82 (99) 96 11/09/17 04:11 97.5 56 17 120/70 (87) 96 11/09/17 03:00 62 11/08/17 23:47 98.0 66 16 122/72 (89) 99 11/08/17 21:01 98.2 65 16 140/91 (107) 99 11/08/17 20:04 11/08/17 19:34 68 15 129/84 (99) 98 Room Air 11/08/17 18:00 62 16 116/76 (89) 96 Room Air 11/08/17 17:00 60 16 93/63 (73) 96 Room Air 11/08/17 16:00 68 16 83/56 (65) 97 Room Air I/O 11/08/17 11/08/17 11/08/17 11/09/17 11/09/17 11/09/17 07:00 15:00 23:00 07:00 15:00 23:00 Intake Total 2000 ml Balance 2000 ml Intake IV Total 2000 ml Imaging Last Impressions Head CT 11/08/17 1413 Signed Impressions: Service Date/Time: Wednesday, November 08, 2017 15:06 - CONCLUSION: 1. Negative noncontrast CT brain. Moises Matute MD Cervical Spine CT 11/08/17 1413 Signed Impressions: Service Date/Time: Wednesday, November 08, 2017 15:06 - CONCLUSION: Degenerative changes in the cervical spine as above. No acute cervical fracture identified. Rene Sarabia MD Chest X-Ray 11/08/17 0000 Signed Impressions: Service Date/Time: Wednesday, November 08, 2017 19:34 - CONCLUSION: No acute disease. Chidi Julian MD Laboratory Test 11/08/17 15:28 11/08/17 17:05 11/08/17 17:10 11/08/17 17:20 White Blood Count 6.3 TH/MM3 Red Blood Count 4.37 MIL/MM3 Hemoglobin 13.1 GM/DL Hematocrit 39.0 % Mean Corpuscular Volume 89.3 FL Mean Corpuscular Hemoglobin 29.9 PG Mean Corpuscular Hemoglobin Concent 33.4 % Red Cell Distribution Width 19.2 % Platelet Count 190 TH/MM3 Mean Platelet Volume 9.0 FL Neutrophils (%) (Auto) 56.0 % Lymphocytes (%) (Auto) 31.4 % Monocytes (%) (Auto) 9.9 % Eosinophils (%) (Auto) 1.9 % Basophils (%) (Auto) 0.8 % Neutrophils # (Auto) 3.5 TH/MM3 Lymphocytes # (Auto) 2.0 TH/MM3 Monocytes # (Auto) 0.6 TH/MM3 Eosinophils # (Auto) 0.1 TH/MM3 Basophils # (Auto) 0.1 TH/MM3 CBC Comment DIFF FINAL Differential Comment Prothrombin Time 10.9 SEC Prothromb Time International Ratio 1.1 RATIO Activated Partial Thromboplast Time 28.5 SEC Blood Urea Nitrogen 19 MG/DL Creatinine 2.50 MG/DL Random Glucose 111 MG/DL Total Protein 7.6 GM/DL Albumin 3.1 GM/DL Calcium Level 8.9 MG/DL Magnesium Level 2.6 MG/DL Alkaline Phosphatase 177 U/L Aspartate Amino Transf (AST/SGOT) 225 U/L Alanine Aminotransferase (ALT/SGPT) 370 U/L Total Bilirubin 2.3 MG/DL Sodium Level 137 MEQ/L Potassium Level 3.8 MEQ/L Chloride Level 106 MEQ/L Carbon Dioxide Level 22.4 MEQ/L Anion Gap 9 MEQ/L Estimat Glomerular Filtration Rate 20 ML/MIN Total Creatine Kinase 22 U/L Troponin I LESS THAN 0.02 NG/ML Blood Gas Puncture Site LINE Blood Gas Patient Temperature 98.6 Venous Blood pH 7.27 Venous Blood Partial Pressure CO2 55 mmHg Venous Blood Partial Pressure O2 33 mmHg Venous Blood HCO3 25 mmol/L Venous Blood Oxygen Saturation 57 % Venous Blood Oxygen Content 10.1 Vol % Venous Blood Base Excess -1.4 mmol/L Oxygen Delivery Device RA Ethyl Alcohol Level LESS THAN 3 MG/DL Ammonia 37 MCMOL/L Salicylates Level LESS THAN 1.7 MG/DL Acetaminophen Level LESS THAN 2.0 MCG/ML Test 11/08/17 17:36 11/08/17 17:39 11/09/17 06:10 11/09/17 13:56 Lactic Acid Level 1.1 mmol/L Urine Opiates Screen POS Urine Barbiturates Screen NEG Urine Amphetamines Screen NEG Urine Benzodiazepines Screen NEG Urine Cocaine Screen POS Urine Cannabinoids Screen NEG White Blood Count 3.5 TH/MM3 Red Blood Count 4.06 MIL/MM3 Hemoglobin 12.0 GM/DL Hematocrit 36.4 % Mean Corpuscular Volume 89.6 FL Mean Corpuscular Hemoglobin 29.6 PG Mean Corpuscular Hemoglobin Concent 33.0 % Red Cell Distribution Width 18.7 % Platelet Count 149 TH/MM3 Mean Platelet Volume 9.3 FL Neutrophils (%) (Auto) 51.4 % Lymphocytes (%) (Auto) 34.9 % Monocytes (%) (Auto) 11.3 % Eosinophils (%) (Auto) 2.0 % Basophils (%) (Auto) 0.4 % Neutrophils # (Auto) 1.8 TH/MM3 Lymphocytes # (Auto) 1.2 TH/MM3 Monocytes # (Auto) 0.4 TH/MM3 Eosinophils # (Auto) 0.1 TH/MM3 Basophils # (Auto) 0.0 TH/MM3 CBC Comment DIFF FINAL Differential Comment Blood Urea Nitrogen 15 MG/DL Creatinine 1.54 MG/DL Random Glucose 113 MG/DL Calcium Level 8.1 MG/DL Sodium Level 144 MEQ/L Potassium Level 4.5 MEQ/L Chloride Level 116 MEQ/L Carbon Dioxide Level 22.1 MEQ/L Anion Gap 6 MEQ/L Estimat Glomerular Filtration Rate 35 ML/MIN Total Bilirubin 1.6 MG/DL Direct Bilirubin 1.1 MG/DL Indirect Bilirubin 0.5 MG/DL Aspartate Amino Transf (AST/SGOT) 147 U/L Alanine Aminotransferase (ALT/SGPT) 267 U/L Alkaline Phosphatase 157 U/L Total Protein 6.4 GM/DL Albumin 2.6 GM/DL Physical Examination HEENT: PERRL; normocephalic; atraumatic; no jaundice. CHEST: CTA CARDIAC: RRR ABDOMEN: Soft, nondistended, diffuse TTP; no hepatosplenomegaly; bowel sounds are present in all four quadrants. EXTREMITIES: No clubbing, cyanosis, or edema. SKIN: Normal; no rash; no jaundice. MINER ASSISTANT: lethargic (Ludy Barakat) Assessment and Plan Plan ASSESSMENT - elevated LFTs - unk etiology.DILI vs hepatitis vs other etiology. hep panel pending. [place] 37. LFTs mild decrease today. denies ETOH consumption. pos for cocaine. takes morphine. - abd pain - unclear etiology. never had colonoscopy. - AMS - per attending PLAN - lactulose BID - await hepatitis panel - US liver - liver w/u - consider colonoscopy - further recs as case unfolds pt seen by myself and Dr Oneal and this note is on his behalf (Ludy Barakat) Physician Comments Seen and examined with TAPER OPERATOR, Liver smith ordered. U/S pending if -ve CT abd/ pelvis. Neurolgy consult. Thank you (Jocelyne Oneal MD) Ludy Barakat Nov 09, 2017 14:41 Jocelyne Oneal MD Nov 09, 2017 15:54
--- NOTE | 2017-11-09 16:43 | EKG ---
Date Performed: 11/08/2017 Time Performed: 15:26:18 PTAGE: 57 years EKG: Sinus rhythm POSSIBLE ANTERIOR MYOCARDIAL INFARCTION INFERIOR MYOCARDIAL INFARCTION Since previous tracing, no si gnificant change noted ABNORMAL ECG PREVIOUS TRACING : 06/15/2017 05.58 DOCTOR: Eliel Caballero Interpretating Date/Time 11/09/2017 16:40:56
[2017-11-09] MEDS: TOPIRAMATE 25 MG TAB PO SCH (18:45)
[2017-11-09] MEDS: FAMOTIDINE 20 MG TAB PO SCH (20:54)
[2017-11-09] MEDS: buPROPion HCL 150 MG SUSTAINED RELEASE TAB PO SCH (20:54)
[2017-11-09] MEDS: LACTULOSE SYRUP 20 GM/30 ML CUP PO SCH (20:54)
[2017-11-09] MEDS: PANTOPRAZOLE SOD 40 MG DELAYED RELEASE TAB PO SCH (20:54)
[2017-11-09 22:01] LABS: BACTERIA, URINE RARE /hpf; BILIRUBIN, URINE NEG (NEG); BLOOD, URINE NEG (NEG); GLUCOSE,URINE 70 mg/dL (NEG); HYALINE CAST, URINE 3 /lpf (RARE); KETONE, URINE NEG (NEG); MUCUS URINE FEW /lpf (OCC); NITRITE,URINE NEG (NEG); PH, URINE 6.5 (5.0-8.5); SQUAMOUS EPITHELIAL CELL URINE 9 /hpf (0-5); URINE COLOR YELLOW (YELLW/STRAW); URINE LEUKOCYTE ESTERASE NEG (NEG)
[2017-11-10 00:32] VITALS: PULSE 64
[2017-11-10] MEDS: SODIUM CHLOR 0.9% 1000 ML INJ 1,000 ML IV SCH ×2 (04:21→12:00)
[2017-11-10 05:06] VITALS: BP 161/88; PULSE 50; RESP 18; TEMP 98.2; O2SAT 93
[2017-11-10 08:41] LABS: ALBUMIN 2.7 GM/DL (3.4-5.0); ALT (GPT) 191 U/L (10-53); AST (GOT) 89 U/L (15-37); BICARBONATE 20.9 MEQ/L (21.0-32.0); BLOOD UREA NITROGEN 12 MG/DL (7-18); CALCIUM 8.5 MG/DL (8.5-10.1); CHLORIDE 116 MEQ/L (98-107); CREATININE 0.88 MG/DL (0.50-1.00); GLOMERULAR FILTRATION RATE 67 ML/MIN (>89); GLUCOSE,RANDOM 100 MG/DL (74-106); IRON (FE) 77 MCG/DL (50-170); SODIUM (NA) 145 MEQ/L (136-145)
[2017-11-10 08:45] LABS: % SATURATION IRON PROFILE 21.9 % (20-50); ALKALINE PHOSPHATASE 150 U/L (45-117); FERRITIN 154 NG/ML (8-252); TOTAL BILIRUBIN ADULT 1.4 MG/DL (0.2-1.0); TOTAL IRON BINDING CAPACITY 351 MCG/DL (250-450); TOTAL PROTEIN 6.7 GM/DL (6.4-8.2)
[2017-11-10 09:02] VITALS: BP 166/89; PULSE 53; RESP 18; TEMP 98.4; O2SAT 97
--- NOTE | 2017-11-10 10:22 | HHI.PR ---
Subjective Remarks Follow up for encephalopathy, transaminitis. The patient is seen sleeping in bed , easily awakens, oriented x4. She denies any confusion, lightheadedness, or dizziness. She denies any abdominal pain, nausea/vomiting, or diarrhea. She has no acute medical complaints at this time. Objective Vitals Vital Signs Date Time Temp Pulse Resp B/P (MAP) Pulse Ox O2 Delivery O2 Flow Rate FiO2 11/10/17 09:02 98.4 53 18 166/89 (114) 97 11/10/17 05:06 98.2 50 18 161/88 (112) 93 11/10/17 00:32 64 11/09/17 22:39 98.4 70 18 144/84 (104) 96 11/09/17 14:54 98.3 60 16 133/83 (100) 96 11/09/17 11:50 98.1 69 18 131/72 (91) 98 Result Diagram: 11/09/17 0610 11/10/17 0757 Imaging Last Impressions Liver Ultrasound 11/10/17 0000 Signed Impressions: Service Date/Time: Friday, November 10, 2017 09:17 - CONCLUSION: 1. Increased hepatic echogenicity characteristic of some degree of fatty infiltration. 2. Splenomegaly. 3. Some gallbladder wall thickening and pericholecystic fluid. Findings are nonspecific and can be secondary to passive edema or an acute inflammatory process. No gallstones. 4. Increased pancreatic echogenicity possibly representing some fatty infiltration. Don Mccracken MD Head CT 11/08/17 1413 Signed Impressions: Service Date/Time: Wednesday, November 08, 2017 15:06 - CONCLUSION: 1. Negative noncontrast CT brain. Moises Matute MD Cervical Spine CT 11/08/17 1413 Signed Impressions: Service Date/Time: Wednesday, November 08, 2017 15:06 - CONCLUSION: Degenerative changes in the cervical spine as above. No acute cervical fracture identified. Rene Sarabia MD Chest X-Ray 11/08/17 0000 Signed Impressions: Service Date/Time: Wednesday, November 08, 2017 19:34 - CONCLUSION: No acute disease. Chidi Julian MD Objective Remarks GENERAL: Well-nourished, well-developed middle aged female patient in [facility]. SKIN: Warm and dry. No rash. HEENT: Normocephalic. Atraumatic.Pupils equal and round. Mucous membranes pink and moist. NECK: Supple. Trachea midline. CARDIOVASCULAR: Regular rate and rhythm. No murmur appreciated. RESPIRATORY: No accessory muscle use. Clear to auscultation. Breath sounds equal bilaterally. GASTROINTESTINAL: Abdomen soft, non-tender, nondistended. Normoactive bowel sounds x4. MUSCULOSKELETAL: No obvious deformities. Extremities without clubbing, cyanosis , or edema. NEUROLOGICAL: Awake and alert. No obvious cranial nerve deficits. Motor grossly within normal limits. Normal speech. PSYCHIATRIC: Appropriate mood and affect; insight and judgment normal. Medications and IVs Current Medications Medications (Trade) Dose Ordered Sig/Johanna Route Start Time Stop Time Status Last Admin Sodium Chloride 1,000 ml @ 100 mls/hr Q10H IV 11/08/17 20:00 11/10/17 12:00 (NS Flush) 2 ml UNSCH PRN IV FLUSH 11/08/17 19:30 (NS Flush) 2 ml BID IV FLUSH 11/08/17 21:00 11/10/17 10:39 (Narcan Inj) 0.4 mg UNSCH PRN IV PUSH 11/08/17 19:30 (Vasotec Inj) 2.5 mg Q6H PRN IV PUSH 11/08/17 20:30 11/10/17 10:38 (Wellbutrin Sr) 150 mg BID PO 11/09/17 21:00 11/10/17 10:38 (Protonix) 40 mg BID PO 11/09/17 21:00 11/10/17 10:39 (Topamax) 50 mg TID PO 11/09/17 18:00 11/10/17 13:59 (Pepcid) 20 mg HS PO 11/09/17 21:00 11/09/17 20:54 (Lactulose Liq) 30 ml TID PO 11/10/17 13:00 11/10/17 13:59 (Oramorph Sr) 15 mg Q8HR PO 11/10/17 22:00 (Oramorph Sr) 15 mg ONCE ONCE PO 11/10/17 15:00 11/10/17 15:01 A/P Assessment and Plan 57-year-old female with a past medical history significant for chronic pain, migraines and GERD presents to the emergency department for evaluation of altered mental status. Acute Encephalopathy with Weakness/Fall: suspect toxic encephalopathy secondary to polysubstance abuse in combination with hepatic encephalopathy. Contacted patient's pain management office Dr. Gregorio, patient goes by the name of "Belen Ceballos" at their office and fills prescriptions under that name, confirmed with nurse at Dr. Gregorio's office and on [facility] that patient is prescribed Oramorph, Flexeril, Klonopin, and Topamax -Head CT and C-spine CT negative for any acute findings -UDS positive for cocaine and opiates -provided Dr. Gregorio's office with UDS results via fax -treat hyperammonemia with lactulose, see below -given IVF hydration for KAUSHAL -monitor neuro checks -avoid sedating medications, restart home medications slowly, no narcotic rx will be given at discharge -patient's encephalopathy resolved Acute renal failure: Creatinine 2.50 upon arrival, baseline 0.67. Suspect secondary to dehydration. -Give IVF hydration -Avoid nephrotoxins -Repeat BMP shows creatinine much improved to 0.88 -resolved, will d/c IVF, patient tolerating oral intake Transaminitis/Hyperammonemia with New Diagnosis of Hepatitis B/C: patient denies any hx of cirrhosis, hepatitis, or heavy alcohol use. Labs on previous admission with LFTs wnl. -repeat LFTs still elevated, no GI symptoms -given lactulose 30mg tid for hyperammonemia -hepatitis panel positive for Hep B & C -consult gastroenterology, appreciate assistance -Liver U/S with increased hepatic echogenicity characteristic of some fatty infiltration; splenomegaly; some GB wall thickening and pericholecystic fluid, no gallstones -repeat LFTs trending down -checking CT abd/pelvis Chronic pain/migraines/depression/anxiety: chronic -continue patient's Topamax, Wellbutrin, and restart Oramorph 15mg q8h -continue to hold Flexeril, Klonopin for now -patient sees Dr. Gregorio for pain management under the name "Belen Ceballos ", notified Dr. Gregorio's office of admission and drug screen results DVT Prophylaxis: teds/SCDs Discharge Planning Further GI work up in progress. Will plan to discharge when cleared by GI. Hopefully in 1-2 days. Cheryl Dunne PA-C Nov 10, 2017 10:22
[2017-11-10] MEDS: LACTULOSE SYRUP 20 GM/30 ML CUP PO SCH ×3 (10:37→17:47)
[2017-11-10] MEDS: TOPIRAMATE 25 MG TAB PO SCH ×3 (10:38→17:47)
[2017-11-10] MEDS: ENALAPRILAT 2.5 MG/2 ML VIAL IV PUSH PRN (10:38)
[2017-11-10] MEDS: buPROPion HCL 150 MG SUSTAINED RELEASE TAB PO SCH ×2 (10:38→21:37)
[2017-11-10] MEDS: SODIUM CHLORIDE 0.9% FLUSH 10 ML FLUSH IV FLUSH SCH ×2 (10:39→21:39)
[2017-11-10] MEDS: PANTOPRAZOLE SOD 40 MG DELAYED RELEASE TAB PO SCH ×2 (10:39→21:37)
[2017-11-10 12:00] VITALS: BP 130/74; PULSE 56; RESP 16; TEMP 98; O2SAT 96
--- NOTE | 2017-11-10 12:13 | RADRPT ---
EXAM DATE/TIME: 11/10/2017 09:17 [facility] COMPARISON: No previous studies available for comparison. INDICATIONS : Increased lab values. MEDICAL HISTORY : Hypertension. Hypercholesterolemia. Inflammatory bowel disease. Neck pain. Neuropathy. Seizures. Dizz iness. Headache. Migraine. Numbness. Dyspnea. GERD. . Urinary tract infection. Arthritis. De pression. Anxiety. Claustrophobia. MRSA. SURGICAL HISTORY : Tubal ligation. Neck surgery. Arteriovenous shunt. Breast augmentation. ENCOUNTER: Subsequent ACUITY: 2 days PAIN SCORE: 8/10 LOCATION: Right upper quadrant MEASUREMENTS: LIVER: 17.0 cm length COMMON DUCT: 6 mm RIGHT KIDNEY: 10.6 x 4.7 x 5.0 cm SPLEEN: 15.0 cm length FINDINGS: LIVER: Slightly elevated echotexture without focal lesion or ductal dilatation. COMMON DUCT: No intraluminal mass or stone visualized. GALLBLADDER: Gallbladder is decompressed but there does appear to be some mural thickening and pericholecystic flu id. PANCREAS: The visualized portions show some increased echogenicity but no focal mass lesion. RIGHT KIDNEY: No hydronephrosis, stone or mass. SPLEEN: No focal lesion. Spleen is enlarged. CONCLUSION: 1. Increased hepatic echogenicity characteristic of some degree of fatty infiltration. 2. Splenomegaly. 3. Some gallbladder wall thickening and pericholecystic fluid. Findings are nonspecific and can be se condary to passive edema or an acute inflammatory process. No gallstones. 4. Increased pancreatic echogenicity possibly representing some fatty infiltration. Don Mccracken MD on November 10, 2017 at 12:05 Board Certified Radiologist. This report was verified electronically.
--- NOTE | 2017-11-10 12:42 | HHI.GIFU ---
Subjective Remarks Pt says she is tired but feels better than yesterday. (RoshniLudy S SWEDGER) Objective Vitals I&O Vital Signs Date Time Temp Pulse Resp B/P (MAP) Pulse Ox O2 Delivery O2 Flow Rate FiO2 11/10/17 09:02 98.4 53 18 166/89 (114) 97 11/10/17 05:06 98.2 50 18 161/88 (112) 93 11/10/17 00:32 64 11/09/17 22:39 98.4 70 18 144/84 (104) 96 11/09/17 14:54 98.3 60 16 133/83 (100) 96 Laboratory Laboratory Tests Test 11/09/17 13:56 11/09/17 21:50 11/10/17 07:57 Hepatitis A IgM Antibody NONREACTIVE Hepatitis B Surface Antigen REACTIVE Hepatitis B Core IgM Antibody REACTIVE Hepatitis C IgG Antibody REACTIVE Urine Color YELLOW Urine Turbidity CLEAR Urine pH 6.5 Urine Specific [place] 1.009 Urine Protein NEG Urine Glucose (UA) 70 Urine Ketones NEG Urine Occult Blood NEG Urine Nitrite NEG Urine Bilirubin NEG Urine Urobilinogen 2.0 Urine Leukocyte Esterase NEG Urine RBC 1 Urine WBC 2 Urine Squamous Epithelial Cells 9 Urine Bacteria RARE Urine Hyaline Casts 3 Urine Mucus FEW Microscopic Urinalysis Comment CULT NOT INDICATED Blood Urea Nitrogen 12 Creatinine 0.88 Random Glucose 100 Total Protein 6.7 Albumin 2.7 Calcium Level 8.5 Alkaline Phosphatase 150 Aspartate Amino Transf (AST/SGOT) 89 Alanine Aminotransferase (ALT/SGPT) 191 Total Bilirubin 1.4 Sodium Level 145 Potassium Level 4.2 Chloride Level 116 Carbon Dioxide Level 20.9 Anion Gap 8 Estimat Glomerular Filtration Rate 67 Iron Level 77 Total Iron Binding Capacity 351 Percent Iron Saturation 21.9 Ferritin 154 Ammonia 35 Tumor Marker Alpha Fetoprotein 7.0 Imaging Last Impressions Liver Ultrasound 11/10/17 0000 Signed Impressions: Service Date/Time: Friday, November 10, 2017 09:17 - CONCLUSION: 1. Increased hepatic echogenicity characteristic of some degree of fatty infiltration. 2. Splenomegaly. 3. Some gallbladder wall thickening and pericholecystic fluid. Findings are nonspecific and can be secondary to passive edema or an acute inflammatory process. No gallstones. 4. Increased pancreatic echogenicity possibly representing some fatty infiltration. Don Mccracken MD Head CT 11/08/17 1413 Signed Impressions: Service Date/Time: Wednesday, November 08, 2017 15:06 - CONCLUSION: 1. Negative noncontrast CT brain. Moises Matute MD Cervical Spine CT 11/08/17 1413 Signed Impressions: Service Date/Time: Wednesday, November 08, 2017 15:06 - CONCLUSION: Degenerative changes in the cervical spine as above. No acute cervical fracture identified. Rene Sarabia MD Chest X-Ray 11/08/17 0000 Signed Impressions: Service Date/Time: Wednesday, November 08, 2017 19:34 - CONCLUSION: No acute disease. Chidi Julian MD Physical Exam HEENT: PERRL; normocephalic; atraumatic; no jaundice. CHEST: CTA CARDIAC: RRR ABDOMEN: Soft, nondistended, upper quadrant TTP; no hepatosplenomegaly; bowel sounds are present in all four quadrants. EXTREMITIES: No clubbing, cyanosis, or edema. SKIN: Normal; no rash; no jaundice. SENSOR TECHNICIAN: mild lethargy (Ludy Barakat) Assessment and Plan Plan ASSESSMENT - elevated LFTs - unk etiology.DILI vs hepatitis vs other etiology. hep panel pending. NH 37. LFTs mild decrease today. denies ETOH consumption. pos for cocaine. takes morphine. - abd pain - unclear etiology. never had colonoscopy. - AMS - per attending 11/10/17 little change NH, pt still somewhat lethargic but says she feels better. She has upper quadrant TTP on exam. US liver --> fatty liver, splenomegaly, some GB wall thickening and pericholecystic fluid, fatty pancreas Hep B, hep C reactive. PLAN - lactulose TID - hep c genotype & quant - hep BE ag - further recs as case unfolds - can do tx for HCV as outpt but will need to be drug free pt seen by myself and Dr Oneal and this note is on his behalf (Ludy Barakat) Physician Comments Seen and examined with SWEDGER, Hep B DNA, and Hep C RNA ordered. (Jocelyne Oneal MD) Ludy Barakat Nov 10, 2017 12:42 Jocelyne Oneal MD Nov 10, 2017 14:26
[2017-11-10] MEDS ORDERED: DIATRIZOATE MEGLUM/DIATRIZOATE SOD 9 ML CUP PO ONE (15:00)
[2017-11-10] MEDS ORDERED: MORPHINE SULFATE 15 MG CONTROLLED RELEASE TAB PO ONE (15:00)
[2017-11-10 15:45] VITALS: BP 133/81; PULSE 58; RESP 17; TEMP 97.4; O2SAT 97
[2017-11-10] MEDS ORDERED: IOHEXOL 350 MG/ML 10 ML VIAL (for RAD DIAG) IVCONTRAST ONE (20:11)
[2017-11-10 20:23] VITALS: BP 130/84; PULSE 71; RESP 16; TEMP 98.2; O2SAT 95
--- NOTE | 2017-11-10 20:48 | RADRPT ---
EXAM DATE/TIME: 11/10/2017 19:52 [facility] COMPARISON: CT ABDOMEN & PELVIS W CONTRAST, November 01, 2016, 19:00. INDICATIONS : Abdomen pain. IV CONTRAST: 75 cc Omnipaque 350 (iohexol) IV ORAL CONTRAST: Prescribed oral contrast ingested. RADIATION DOSE: 14.71 CTDIvol (mGy) MEDICAL HISTORY : Hypertension. Diverticulitis. SURGICAL HISTORY : AV shunt ENCOUNTER: Initial ACUITY: 1 day PAIN SCALE: 5/10 LOCATION: Bilateral abdomen TECHNIQUE: Volumetric scanning of the abdomen and pelvis was performed. Using automated exposure control and ad justment of the mA and/or kV according to patient size, radiation dose was kept as low as reasonably achievable to obtain optimal diagnostic quality images. DICOM format image data is available electro nically for review and comparison. FINDINGS: The lower lungs are clear. Breast implants are noted The liver is free of focal defects Gallbladder wall is prominent with some gallbladder wall thickening and inflammatory changes around t he gallbladder Spleen is prominent. The pancreas appears normal There is symmetrical renal function with parapelvic cyst the left. There is no ascites or adenopathy Pelvis there is no free fluid. Review of bone windows reveals only degenerative changes.. CONCLUSION: Gallbladder wall thickening with fluid around the gallbladder. This is suspicious fo r cholecystitis. Rah Sarabia MD FACR on November 10, 2017 at 20:41 Board Certified Radiologist. This report was verified electronically.
[2017-11-10] MEDS: MORPHINE SULFATE 15 MG CONTROLLED RELEASE TAB PO SCH (21:38)
[2017-11-10] MEDS: FAMOTIDINE 20 MG TAB PO SCH (21:38)
[2017-11-11] VITALS (12 sets, daily range): BP systolic 102–175; BP diastolic 59–101; PULSE 47–110; RESP 14–20; TEMP 97.8–101.9; O2SAT 95–100
[2017-11-11] MEDS ORDERED: IBUPROFEN 400 MG TAB PO ONE (01:30)
[2017-11-11] MEDS: PIPERACIL-TAZO 3.375 GM PREMIX 50 ML IV SCH ×4 (03:27→20:03)
[2017-11-11 03:28] LABS: ALBUMIN 2.5 GM/DL (3.4-5.0); ALT (GPT) 139 U/L (10-53); AST (GOT) 57 U/L (15-37); BICARBONATE 22.5 MEQ/L (21.0-32.0); BLOOD UREA NITROGEN 8 MG/DL (7-18); CALCIUM 8.3 MG/DL (8.5-10.1); CHLORIDE 109 MEQ/L (98-107); CREATININE 0.85 MG/DL (0.50-1.00); GLOMERULAR FILTRATION RATE 69 ML/MIN (>89); GLUCOSE,RANDOM 130 MG/DL (74-106); SODIUM (NA) 139 MEQ/L (136-145)
[2017-11-11 03:30] LABS: ALKALINE PHOSPHATASE 125 U/L (45-117); TOTAL BILIRUBIN ADULT 1.4 MG/DL (0.2-1.0); TOTAL PROTEIN 6.4 GM/DL (6.4-8.2)
[2017-11-11] MEDS: MORPHINE SULFATE 15 MG CONTROLLED RELEASE TAB PO SCH ×3 (05:41→20:04)
[2017-11-11] MEDS: SODIUM CHLORIDE 0.9% FLUSH 10 ML FLUSH IV FLUSH SCH ×2 (08:26→20:03)
[2017-11-11] MEDS: LACTULOSE SYRUP 20 GM/30 ML CUP PO SCH ×3 (08:26→18:36)
[2017-11-11] MEDS: TOPIRAMATE 25 MG TAB PO SCH ×3 (08:26→18:36)
[2017-11-11] MEDS: buPROPion HCL 150 MG SUSTAINED RELEASE TAB PO SCH ×2 (08:26→20:03)
[2017-11-11] MEDS: PANTOPRAZOLE SOD 40 MG DELAYED RELEASE TAB PO SCH ×2 (08:26→20:03)
[2017-11-11] MEDS ORDERED: SINCALIDE 5 MCG/5 ML VIAL IV ONE (14:27)
--- NOTE | 2017-11-11 15:07 | HHI.GIFU ---
Subjective Remarks Resting in the bed Complaints of increased epigastric soreness, worse with drinking orange juice/ citrus. Left and right upper quadrant soreness Nausea without vomiting Fever 101.9 high on 11/11/17 (Kira García) Objective Vitals I&O Vital Signs Date Time Temp Pulse Resp B/P (MAP) Pulse Ox O2 Delivery O2 Flow Rate FiO2 11/11/17 12:17 98.5 49 20 147/82 (103) 98 11/11/17 11:59 98.7 50 16 142/80 (100) 98 11/11/17 07:53 49 11/11/17 07:50 97.9 47 18 118/59 (78) 100 11/11/17 04:10 54 11/11/17 03:36 97.8 61 14 102/59 (73) 95 11/11/17 00:21 102 11/11/17 00:08 101.9 110 16 117/64 (81) 95 11/10/17 20:23 98.2 71 16 130/84 (99) 95 11/10/17 15:46 20 11/10/17 15:45 97.4 58 17 133/81 (98) 97 I/O 11/10/17 11/10/17 11/10/17 11/11/17 11/11/17 11/11/17 07:00 15:00 23:00 07:00 15:00 23:00 Intake Total 400 ml Balance 400 ml Intake IV Total 400 ml Laboratory Laboratory Tests Test 11/10/17 16:19 11/11/17 02:56 Lipase 154 Blood Urea Nitrogen 8 Creatinine 0.85 Random Glucose 130 Total Protein 6.4 Albumin 2.5 Calcium Level 8.3 Alkaline Phosphatase 125 Aspartate Amino Transf (AST/SGOT) 57 Alanine Aminotransferase (ALT/SGPT) 139 Total Bilirubin 1.4 Sodium Level 139 Potassium Level 3.6 Chloride Level 109 Carbon Dioxide Level 22.5 Anion Gap 8 Estimat Glomerular Filtration Rate 69 Ammonia 38 Date/Time Source Procedure Growth Status 11/11/17 03:16 Blood Peripheral Aerobic Blood Culture Pending Received 11/11/17 03:16 Blood Peripheral Anaerobic Blood Culture Pending Received Imaging Last Impressions Hepatobiliary Scan Nuclear Medicine 11/11/17 0000 Signed Impressions: Service Date/Time: November 13:13 - CONCLUSION: 1. Visualization of the gallbladder and normal gallbladder ejection fraction. 2. Mild biliary enteric reflux which occurs after CCK administration. Moises Matute MD Liver Ultrasound 11/10/17 0000 Signed Impressions: Service Date/Time: Friday, November 10, 2017 09:17 - CONCLUSION: 1. Increased hepatic echogenicity characteristic of some degree of fatty infiltration. 2. Splenomegaly. 3. Some gallbladder wall thickening and pericholecystic fluid. Findings are nonspecific and can be secondary to passive edema or an acute inflammatory process. No gallstones. 4. Increased pancreatic echogenicity possibly representing some fatty infiltration. Don Mccracken MD Abdomen/Pelvis CT 11/10/17 0000 Signed Impressions: Service Date/Time: Friday, November 10, 2017 19:52 - CONCLUSION: Gallbladder wall thickening with fluid around the gallbladder. This is suspicious for cholecystitis. Rah Sarabia MD FACR Head CT 11/08/17 1413 Signed Impressions: Service Date/Time: Wednesday, November 08, 2017 15:06 - CONCLUSION: 1. Negative noncontrast CT brain. Moises Matute MD Cervical Spine CT 11/08/171412 Signed Impressions: Service Date/Time: Wednesday, November 08, 2017 15:06 - CONCLUSION: Degenerative changes in the cervical spine as above. No acute cervical fracture identified. Rene Sarabia MD Chest X-Ray 11/08/17 0000 Signed Impressions: Service Date/Time: Wednesday, November 08, 2017 19:34 - CONCLUSION: No acute disease. Chidi Julian MD Physical Exam HEENT: PERRL; normocephalic; atraumatic; no jaundice. Oral cavity clean CHEST: Essentially clear without rhonchi are all the wheezing CARDIAC: RRR ABDOMEN: Epigastric tenderness worse with light palpation Soft, nondistended, left and right upper quadrant discomfort; no hepatosplenomegaly; bowel sounds are present in all four quadrants. EXTREMITIES: No LE edema. SKIN: Normal; no rash; no jaundice. INSPECTOR PAWNSHOP DETAIL: Awake answers questions appropriately, fair historian to previous events (Kira García) Assessment and Plan Plan ASSESSMENT - elevated LFTs - unk etiology.DILI vs hepatitis vs other etiology. hep panel pending. NH 37. LFTs mild decrease today. denies ETOH consumption. pos for cocaine. takes morphine. - abd pain - unclear etiology. never had colonoscopy. - AMS - per attending 11/10/17 little change NH, pt still somewhat lethargic but says she feels better. She has upper quadrant TTP on exam. US liver --> fatty liver, splenomegaly, some GB wall thickening and pericholecystic fluid, fatty pancreas Hep B, hep C reactive. 11/11/17, she continues to have epigastric tenderness worse with light palpation. Currently on PPI in the a.m. and H2 nneka in the p.m. with breakthrough symptoms. Hepato-biliary nuclear medicine scan today, findings include gallbladder normal ejection fraction. Mild biliary enteric reflux occurred after CCK administration. Upper GI symptoms possibly to be GERD related. Continues with left and right upper quadrant discomfort. Labs today show AST 57, ALT 139, alkaline phosphatase 125, ammonia level 38. Ceruloplasmin and alpha 1 antitrypsin pending, lipase 154, AFP 7, albumin level 2.5 PLAN - Diet heart healthy - Continue PPI twice a day and H2 nneka at night - lactulose TID - hep c genotype & quant pending - hep BE ag pending - further recs as case unfolds, consider EGD and colonoscopy TBA, possible outpatient setting. - can do tx for HCV as outpt but will need to be drug free pt seen by myself and Dr Oneal and this note is on his behalf (Kira García) Physician Comments Seen and examined with ADORE< liver smith in progress. EGD planned for tomorrow. (Jocelyne Oneal MD) Kira García Nov 11, 2017 15:07 Jocelyne Oneal MD Nov 11, 2017 17:41
--- NOTE | 2017-11-11 15:25 | RADRPT ---
EXAM DATE/TIME: 11/11/2017 13:13 [facility] COMPARISON: No previous studies available for comparison. INDICATIONS : Right upper quadrant pain. DOSE: 4.2 mCi Tc99m Mebrofenin IV MEDICATION: 1.3 mcg Cholecystokinin IV; No symptomatic response. Cholecystokinin was administered by slow infusion over 8 minutes beginning at 60 minutes. MEDICAL HISTORY : Hypertension. SURGICAL HISTORY : Breast augmentation. ENCOUNTER: Initial ACUITY: 1 day PAIN SCALE: 4/10 LOCATION: Right upper quadrant TECHNIQUE: Following the intravenous administration of radiotracer, dynamic sequential image were performed with continuous acquisition. Time-activity curves were generated. FINDINGS: HEPATIC KINETICS: There is prompt uptake of radiotracer in the liver. No focal defects are seen. There is normal rate of washout from the hepatic parenchyma. BILIARY CLEARANCE: Activity is first seen in the extrahepatic biliary system at 8 minutes. There is normal excretion in to the small bowel. GALLBLADDER: Activity is first seen in the gallbladder at 23 minutes. POST CHOLECYSTOKININ: After Cholecystokinin administration, there is prompt emptying of the gallbladder with a 50 % ejectio n fraction. Common bile duct kinetics are normal and there is no evidence of biliary obstruction. BILIARY ENTERIC REFLUX: Solitary episode of mild biliary enteric reflux is noted at 80 minutes. CLINICAL: The patient was asymptomatic after Cholecystokinin administration. CONCLUSION: 1. Visualization of the gallbladder and normal gallbladder ejection fraction. 2. Mild biliary enteric reflux which occurs after CCK administration. Moises Matute MD on November 11, 2017 at 15:22 Board Certified Radiologist. This report was verified electronically.
--- NOTE | 2017-11-11 17:24 | HHI.PR ---
Subjective Remarks Fever of 101.9 today Feeling nauseous with epigastric pain Abdominal CT showed thickening of the gallbladder I discussed with the GI LASTING MACHINE OPERATOR BED will plan for HIDA scan Objective Vitals Vital Signs Date Time Temp Pulse Resp B/P (MAP) Pulse Ox O2 Delivery O2 Flow Rate FiO2 11/11/17 16:30 98.2 48 20 146/101 (116) 96 175/98 (123) 11/11/17 12:17 98.5 49 20 147/82 (103) 98 11/11/17 11:59 98.7 50 16 142/80 (100) 98 11/11/17 07:53 49 11/11/17 07:50 97.9 47 18 118/59 (78) 100 11/11/17 04:10 54 11/11/17 03:36 97.8 61 14 102/59 (73) 95 11/11/17 00:21 102 11/11/17 00:08 101.9 110 16 117/64 (81) 95 11/10/17 20:23 98.2 71 16 130/84 (99) 95 I/O 11/10/17 11/10/17 11/10/17 11/11/17 11/11/17 11/11/17 07:00 15:00 23:00 07:00 15:00 23:00 Intake Total 400 ml Balance 400 ml Intake IV Total 400 ml Result Diagram: 11/09/17 0610 11/11/17 0256 Objective Remarks GENERAL: This is a well-nourished, well-developed patient, in no apparent distress. SKIN: No rashes, warm and dry HEAD: Atraumatic. Normocephalic. EYES: Pupils equal round and reactive. Extraocular motions intact. No scleral icterus. ENT: Nose without bleeding, or drainage, Airway patent. NECK: Trachea midline. Supple CARDIOVASCULAR: Regular rate and rhythm without murmurs, gallops, or rubs. RESPIRATORY: Fair air entry bilaterally. No wheezes, rales, or rhonchi. GASTROINTESTINAL: Abdomen soft, right and left upper quadrant tenderness, nondistended. Positive bowel sounds MUSCULOSKELETAL: Extremities without clubbing, cyanosis, or edema. Pedal pulses appreciated NEUROLOGICAL: Awake and alert. Moves all extremity. Normal speech.no focal neurological deficit A/P Assessment and Plan 57-year-old female with a past medical history significant for chronic pain, migraines and GERD presents to the emergency department for evaluation of altered mental status. Acute Encephalopathy with Weakness/Fall: suspect toxic encephalopathy secondary to polysubstance abuse in combination with hepatic encephalopathy. Contacted patient's pain management office Dr. Gregorio, patient goes by the name of "Belen Ceballos" at their office and fills prescriptions under that name, confirmed with nurse at Dr. Gregorio's office and on E-Forcse that patient is prescribed Oramorph, Flexeril, Klonopin, and Topamax -Head CT and C-spine CT negative for any acute findings -UDS positive for cocaine and opiates -provided Dr. Gregorio's office with UDS results via fax -treat hyperammonemia with lactulose, see below -given IVF hydration for KAUSHAL -monitor neuro checks -avoid sedating medications, restart home medications slowly, no narcotic rx will be given at discharge -patient's encephalopathy resolved Acute renal failure: Creatinine 2.50 upon arrival, baseline 0.67. Suspect secondary to dehydration. -Give IVF hydration -Avoid nephrotoxins -Repeat BMP shows creatinine much improved to 0.88 -resolved, will d/c IVF, patient tolerating oral intake Transaminitis/Hyperammonemia with New Diagnosis of Hepatitis B/C: patient denies any hx of cirrhosis, hepatitis, or heavy alcohol use. Labs on previous admission with LFTs wnl. -repeat LFTs still elevated, no GI symptoms -given lactulose 30mg tid for hyperammonemia -hepatitis panel positive for Hep B & C -consult gastroenterology, appreciate assistance -Liver U/S with increased hepatic echogenicity characteristic of some fatty infiltration; splenomegaly; some GB wall thickening and pericholecystic fluid, no gallstones -repeat LFTs trending down -checking CT abd/pelvis 11/11: CT abdomen showed thickening of the gallbladder suspect cholecystitis, discussed with ADORE, HIDA scan came back with normal gallbladder excretion, plan for EGD and colonoscopy in a.m. monitor CMP Chronic pain/migraines/depression/anxiety: chronic -continue patient's Topamax, Wellbutrin, and restart Oramorph 15mg q8h -continue to hold Flexeril, Klonopin for now -patient sees Dr. Gregorio for pain management under the name "Belen Ceballos ", notified Dr. Gregorio's office of admission and drug screen results DVT Prophylaxis: teds/Alexandra Nair MD Nov 11, 2017 17:24
[2017-11-11] MEDS: FAMOTIDINE 20 MG TAB PO SCH (20:03)
[2017-11-11 20:22] LABS: ALPHA-1-ANTITRYPSIN 181 mg/dL (100 - 190)
[2017-11-12] VITALS (10 sets, daily range): BP systolic 104–180; BP diastolic 60–99; PULSE 47–86; RESP 18–20; TEMP 97.6–99.2; O2SAT 94–97
[2017-11-12] MEDS ORDERED: CHLORHEXIDINE GLUCONATE 2 % 1 PACK (2 CLOTHS) TOPICAL PRN (02:45)
[2017-11-12] MEDS ORDERED: SODIUM CHLORID 0.9% 500 ML IV PRN (02:45)
[2017-11-12] MEDS ORDERED: POVIDONE IODINE 5% (ANTISEPSIS KIT) 4 APPLICATIONS EACH NARE PRN (02:45)
[2017-11-12] MEDS ORDERED: LACTATED RINGER'S 1000 ML IV PRN (02:45)
[2017-11-12] MEDS: PIPERACIL-TAZO 3.375 GM PREMIX 50 ML IV SCH ×4 (03:22→20:00)
[2017-11-12] MEDS: MORPHINE SULFATE 15 MG CONTROLLED RELEASE TAB PO SCH ×3 (05:05→22:07)
[2017-11-12 07:15] LABS: BILIRUBIN, URINE NEG (NEG); BLOOD, URINE NEG (NEG); GLUCOSE,URINE 70 mg/dL (NEG); HYALINE CAST, URINE 3 /lpf (RARE); KETONE, URINE NEG (NEG); NITRITE,URINE NEG (NEG); PH, URINE 7.5 (5.0-8.5); SQUAMOUS EPITHELIAL CELL URINE 3 /hpf (0-5); URINE COLOR YELLOW (YELLW/STRAW); URINE LEUKOCYTE ESTERASE NEG (NEG)
[2017-11-12] MEDS: PANTOPRAZOLE SOD 40 MG DELAYED RELEASE TAB PO SCH ×2 (09:36→22:07)
[2017-11-12] MEDS: LACTULOSE SYRUP 20 GM/30 ML CUP PO SCH ×3 (09:36→18:08)
[2017-11-12] MEDS: SODIUM CHLORIDE 0.9% FLUSH 10 ML FLUSH IV FLUSH SCH ×2 (09:36→22:08)
[2017-11-12] MEDS: buPROPion HCL 150 MG SUSTAINED RELEASE TAB PO SCH ×2 (09:37→22:07)
[2017-11-12] MEDS: TOPIRAMATE 25 MG TAB PO SCH ×3 (09:37→18:08)
--- NOTE | 2017-11-12 11:36 | HHI.GIFU ---
Subjective Remarks Pt complaining of continued epigastric pain and some pain on her left side States she is hungry States she did not know she was having a procedure today Tearful during my exam Objective Vitals I&O Vital Signs Date Time Temp Pulse Resp B/P (MAP) Pulse Ox O2 Delivery O2 Flow Rate FiO2 11/12/17 08:00 98.4 60 20 166/95 (118) 96 11/12/17 04:00 49 11/12/17 04:00 98.5 54 18 162/86 (111) 96 11/12/17 00:00 59 11/12/17 00:00 99.2 58 18 166/89 (114) 94 11/11/17 20:00 58 11/11/17 20:00 99.8 61 20 136/90 (105) 95 11/11/17 16:30 98.2 48 20 146/101 (116) 96 175/98 (123) 11/11/17 15:51 48 11/11/17 12:17 98.5 49 20 147/82 (103) 98 11/11/17 11:59 98.7 50 16 142/80 (100) 98 I/O 11/11/17 11/11/17 11/11/17 11/12/17 11/12/17 11/12/17 07:00 15:00 23:00 07:00 15:00 23:00 Intake Total 50 ml Balance 50 ml Intake IV Total 50 ml Laboratory Laboratory Tests Test 11/12/17 06:37 Urine Color YELLOW Urine Turbidity CLEAR Urine pH 7.5 Urine Specific Iaeger 1.014 Urine Protein NEG Urine Glucose (UA) 70 Urine Ketones NEG Urine Occult Blood NEG Urine Nitrite NEG Urine Bilirubin NEG Urine Urobilinogen LESS THAN 2.0 Urine Leukocyte Esterase NEG Urine RBC LESS THAN 1 Urine WBC 1 Urine Squamous Epithelial Cells 3 Urine Hyaline Casts 3 Microscopic Urinalysis Comment CULT NOT INDICATED Date/Time Source Procedure Growth Status 11/11/17 03:16 Blood Peripheral Aerobic Blood Culture - Preliminary NO GROWTH IN 1 DAY Resulted 11/11/17 03:16 Blood Peripheral Anaerobic Blood Culture - Preliminary NO GROWTH IN 1 DAY Resulted Imaging Last Impressions Hepatobiliary Scan Nuclear Medicine 11/11/17 0000 Signed Impressions: Service Date/Time: November 13:13 - CONCLUSION: 1. Visualization of the gallbladder and normal gallbladder ejection fraction. 2. Mild biliary enteric reflux which occurs after CCK administration. Moises Matute MD Liver Ultrasound 11/10/17 Signed Impressions: Service Date/Time: Friday, November 10, 2017 09:17 - CONCLUSION: 1. Increased hepatic echogenicity characteristic of some degree of fatty infiltration. 2. Splenomegaly. 3. Some gallbladder wall thickening and pericholecystic fluid. Findings are nonspecific and can be secondary to passive edema or an acute inflammatory process. No gallstones. 4. Increased pancreatic echogenicity possibly representing some fatty infiltration. Don Mccracken MD Abdomen/Pelvis CT 11/10/17 Signed Impressions: Service Date/Time: Friday, November 10, 2017 19:52 - CONCLUSION: Gallbladder wall thickening with fluid around the gallbladder. This is suspicious for cholecystitis. Rah Sarabia MD FACR Head CT [id number]/[id number] Signed Impressions: Service Date/Time: Wednesday, November 08, 2017 15:06 - CONCLUSION: 1. Negative noncontrast CT brain. Moises Matute MD Cervical Spine CT [id number]/08/[id number] Signed Impressions: Service Date/Time: Wednesday, November 08, 2017 15:06 - CONCLUSION: Degenerative changes in the cervical spine as above. No acute cervical fracture identified. Rene Sarabia MD Chest X-Ray 11/08/17 Signed Impressions: Service Date/Time: Wednesday, November 08, 2017 19:34 - CONCLUSION: No acute disease. Chidi Julian MD Physical Exam HEENT: Normocephalic; atraumatic CHEST: Even/unlabored CARDIAC: RRR ABDOMEN: Soft, epigastric TTP, bowel sounds active SKIN: Normal; no rash; no jaundice. MEDICAL AFFAIRS MANAGER: Alert and oriented x 3 Assessment and Plan Plan ASSESSMENT - elevated LFTs - unk etiology.DILI vs hepatitis vs other etiology. hep panel pending. NH 37. LFTs mild decrease today. denies ETOH consumption. pos for cocaine. takes morphine. - abd pain - unclear etiology. never had colonoscopy. - AMS - per attending Work up so far: Hepatitis panel shows B antigen and core antibody reactive. Quant pending Hepatitic C antibody reactive, genotype and quant pending BOBBI negative Ammonia-38 AFP-7 Alpha-1 antitrypsin-181 Ferritin-154 Still pending: ASMA, AMA, ceruloplasmin Imaging: Liver US (11/10) --> Increased hepatic echogenicity characteristic of some degree of fatty infiltration. Splenomegaly. Some gallbladder wall thickening and pericholecystic fluid. No gallstones. Increase pancreatic echogenicity possibly representing some fatty infiltration. CT abdomen and pelvis W IV contrast (11/10) Gallbladder wall thickening with fluid around the gallbladder. Suspicious for cholecystitis HIDA (11/11) --> Visualization fo the gallbladder and normal gallbladder EF. Mild biliary enteric reflux which occurs after CCK administration. (11/12) Pt with continued epigastric abdominal pain. Tearful during my exam, states she did not know she was having a procedure today. Discussed with pt that Dr. Oneal would be doing an EGD to further evaluate other causes for her epigastric pain. Discussed with her the results of previous HIDA scan and CT abdomen which are not consistent with acute cholecystitis. Pt is agreeable to procedure today. Nathaniel at bedside, witnessed pt informed about procedure and her consent. Discussed with LORENZO Calhoun, she is aware. No repeat LFTs from today, however seemed to be trending down yesterday. PLAN - EGD today - Keep NPO - Obtain consent (D/W LORENZO Calhoun and with pt) - Liver work up pending (Hep B quant, Hep C genotype and quant, Ceruloplasmin, AMA, ASMA) - Protonix - Pepcid - Further recommendations based on findings of above and clinical course Pt has been seen and examined by myself and Dr. Oneal and this note is written on his behalf Muriel Cody Nov 12, 2017 11:36
[2017-11-12] MEDS ORDERED: PROPOFOL 200 MG/20 ML AMP IV ONE (12:00)
[2017-11-12] MEDS ORDERED: LIDOCAINE HCL 1% PF 5 ML SYRINGE OTHER ONE (12:00)
--- NOTE | 2017-11-12 13:32 | GIPROC ---
[facility] [address] [facility]. [facility] [place], [id number] EGD PROCEDURE REPORT EXAM DATE: 11/12/2017 PATIENT NAME: Belen Gilbert MR #: [id number] BIRTHDATE: 1960 ATTENDING: Jocelyne Oneal MD ORDER #: [id number] STONE CLEANER: Mil Turner and Griselda Arriaga STATUS: inpatient INDICATIONS: The patient is a 57 yr old female here for an EGD due to epigastric abdominal pain PROCEDURE PERFORMED: EGD w/ biopsy MEDICATIONS: None and Per Anesthesia. TOPICAL ANESTHETIC: CONSENT: The patient understands the risks and benefits of the procedure and understands that these risks include, but are not limited to: sedation, allergic reaction, infection, perforation and/or bleeding. Alternative means of evaluation and treatment include, among others: physical exam, x-rays, and/or surgical intervention. The patient elects to proceed with this endoscopic procedure. medical equipment was checked for proper function. Hand hygiene and appropriate measures for infection prevention was taken. After the risks, benefits and alternatives of the procedure were thoroughly explained, Informed consent was verified, confirmed and timeout was successfully executed by the treatment team. The patient was anesthetized with topical anesthesia and the Pentax [id number] endoscope was introduced through the mouth and advanced to the second portion of the duodenum. Retroflexed views revealed no abnormalities The gastroscope was then slowly withdrawn and removed. ESOPHAGUS: There was LA Class A esophagitis noted. A biopsy was performed using cold forceps. Sample sent for histology. STOMACH: There was erythematous moderate gastritis in the gastric antrum. A biopsy was performed using cold forceps. Sample sent for histology. DUODENUM: The duodenal mucosa appeared normal in the bulb and second portion of the duodenum. ADVERSE EVENTS: There were no complications. IMPRESSIONS: 1. There was LA Class A esophagitis noted; biopsy was performed 2. There was erythematous gastritis in the gastric antrum; biopsy was performed 3. Normal duodenal mucosa in the bulb and second portion of the duodenum 4. Retroflexed views revealed no abnormalities RECOMMENDATIONS: 1. Await biopsy results. Biopsy results will not be ready for 7-10 days. If you don't hear from us in two weeks, call our office for biopsy results. 2. Anti-reflux regimen 3. Continue PPI 4. Avoid NSAIDS PATIENT CONDITION: stable DISPOSITION: Inpatient REPEAT EXAM: Return 1 year EGD pending biopsy results Jocelyne Oneal MD eSigned: Jocelyne Oneal MD 11/12/2017 1:32 PM cc: PATIENT NAME: Ofelia Belen L MR#: [id number]
[2017-11-12] MEDS ORDERED: DO NOT ADM ANY ANTICOAGULANT DRUGS PRN (13:34)
[2017-11-12] MEDS ORDERED: Lactulose Liq PO (15:47)
--- NOTE | 2017-11-12 18:42 | HHI.PR ---
Subjective Remarks "My stomach still hurting " Patient had EGD today I discussed with car he cleared her to be discharged and follow-up as an outpatient Objective Vitals Vital Signs Date Time Temp Pulse Resp B/P (MAP) Pulse Ox O2 Delivery O2 Flow Rate FiO2 11/12/17 16:56 18 11/12/17 16:14 67 11/12/17 16:00 98.1 54 20 137/99 (112) 97 11/12/17 13:55 50 16 148/82 (104) 99 11/12/17 13:47 97.9 48 16 151/88 (109) 98 11/12/17 12:00 97.6 86 20 173/89 (117) 96 11/12/17 08:00 98.4 60 20 166/95 (118) 96 11/12/17 08:00 47 11/12/17 04:00 49 11/12/17 04:00 98.5 54 18 162/86 (111) 96 11/12/17 00:00 59 11/12/17 00:00 99.2 58 18 166/89 (114) 94 11/11/17 20:00 58 11/11/17 20:00 99.8 61 20 136/90 (105) 95 I/O 11/11/17 11/11/17 11/11/17 11/12/17 11/12/17 11/12/17 07:00 15:00 23:00 07:00 15:00 23:00 Intake Total 50 ml 50 ml 50 ml Balance 50 ml 50 ml 50 ml Intake Oral 0 ml IV Total 50 ml 50 ml 50 ml Result Diagram: 11/09/17 0610 11/11/17 0256 Objective Remarks GENERAL: This is a well-nourished, well-developed patient, in no apparent distress. SKIN: No rashes, warm and dry HEAD: Atraumatic. Normocephalic. EYES: Pupils equal round and reactive. Extraocular motions intact. No scleral icterus. ENT: Nose without bleeding, or drainage, Airway patent. NECK: Trachea midline. Supple CARDIOVASCULAR: Regular rate and rhythm without murmurs, gallops, or rubs. RESPIRATORY: Fair air entry bilaterally. No wheezes, rales, or rhonchi. GASTROINTESTINAL: Abdomen soft, mild right upper quadrant soreness, nondistended. Positive bowel sounds MUSCULOSKELETAL: Extremities without clubbing, cyanosis, or edema. Pedal pulses appreciated NEUROLOGICAL: Awake and alert. Moves all extremity. Normal speech.no focal neurological deficit A/P Assessment and Plan 57-year-old female with a past medical history significant for chronic pain, migraines and GERD presents to the emergency department for evaluation of altered mental status. Acute Encephalopathy with Weakness/Fall: suspect toxic encephalopathy secondary to polysubstance abuse in combination with hepatic encephalopathy. Contacted patient's pain management office Dr. Gregorio, patient goes by the name of "Belen Ceballos" at their office and fills prescriptions under that name, confirmed with nurse at Dr. Gregorio's office and on E-Forcse that patient is prescribed Oramorph, Flexeril, Klonopin, and Topamax -Head CT and C-spine CT negative for any acute findings -UDS positive for cocaine and opiates -provided Dr. Gregorio's office with UDS results via fax -treat hyperammonemia with lactulose, see below -given IVF hydration for KAUSHAL -monitor neuro checks -avoid sedating medications, restart home medications slowly, no narcotic rx will be given at discharge -patient's encephalopathy resolved Acute renal failure: Creatinine 2.50 upon arrival, baseline 0.67. Suspect secondary to dehydration. -Give IVF hydration -Avoid nephrotoxins -Repeat BMP shows creatinine much improved to 0.88 -resolved, will d/c IVF, patient tolerating oral intake Transaminitis/Hyperammonemia with New Diagnosis of Hepatitis B/C: patient denies any hx of cirrhosis, hepatitis, or heavy alcohol use. Labs on previous admission with LFTs wnl. -repeat LFTs still elevated, -given lactulose 30mg tid for hyperammonemia -hepatitis panel positive for Hep B & C -Appreciate GI consultation status post EGD showing gastritis -Liver U/S with increased hepatic echogenicity characteristic of some fatty infiltration; splenomegaly; some GB wall thickening and pericholecystic fluid, no gallstones -repeat LFTs trending down -checking CT abd/pelvis 11/11: CT abdomen showed thickening of the gallbladder suspect cholecystitis, discussed with ELECTRIC KNIFE OPERATOR, HIDA scan came back with normal gallbladder excretion, plan for EGD and colonoscopy in a.m. monitor CMP 11/12: Status post EGD showing gastritis, cleared by GI to be discharged today in follow-up as an outpatient Chronic pain/migraines/depression/anxiety: chronic -continue patient's Topamax, Wellbutrin, and restart Oramorph 15mg q8h -continue to hold Flexeril, Klonopin for now -patient sees Dr. Gregorio for pain management under the name "Belen Ceballos ", notified Dr. Gregorio's office of admission and drug screen results DVT Prophylaxis: teds/Alexandra Nair MD Nov 12, 2017 18:42
--- NOTE | 2017-11-12 20:52 | RADRPT ---
EXAM DATE/TIME: 11/12/2017 17:14 [facility] COMPARISON: No previous studies available for comparison. INDICATIONS : Erythema and swelling. MEDICAL HISTORY : Hypercholesterolemia. Hypertension. . Diverticulitis. GERD. Neuropathy. Seizures. Migraines. . Arthritis. Depression. Anxiety. Substance abuse. MRSA. SURGICAL HISTORY : Tubal ligation. Neck surgery. Breast augmentation. Spinal cord shunt at C6. ENCOUNTER: Initial ACUITY: 1 day PAIN SCORE: 6/10 LOCATION: Left arm. FINDINGS: There is nonocclusive thrombus in the basalic vein. The brachial vein and axillary vein are patent. CONCLUSION: Nonocclusive thrombus the basalic vein. Rah Sarabia MD FACR on November 12, 2017 at 20:49 Board Certified Radiologist. This report was verified electronically.
[2017-11-12] MEDS: FAMOTIDINE 20 MG TAB PO SCH (22:07)
[2017-11-12] MEDS: ENALAPRILAT 2.5 MG/2 ML VIAL IV PUSH PRN (22:09)
--- NOTE | 2017-11-13 10:16 | HHI.DS ---
Discharge Summary Admission Date Nov 08, 2017 at 19:25 Discharge Date: Nov 12, 2017 Admitting Diagnosis KAUSHAL, ALtered mental status, Dehydration. (1) Gastritis ICD Code: K29.70 - Gastritis, unspecified, without bleeding (2) Acute kidney injury ICD Code: N17.9 - Acute kidney failure, unspecified (3) Encephalopathy ICD Code: G93.40 - Encephalopathy, unspecified (4) Nausea & vomiting ICD Code: R11.2 - Nausea with vomiting, unspecified Status: Acute Procedures EGD with biopsy Brief History - From Admission 57-year-old female with a past medical history significant for chronic pain, migraines and GERD presents to the emergency department for evaluation of altered mental status. The patient will arouse to sternal rub however will not participate in my interview and does not follow commands or answer questions. Per emergency department documentation the patient presented with her fianc. The fianc stated that they were fishing today when all of a sudden the patient became very weak and fell. He states that for the past few days this weakness has been intermittent but progressive. Unable to obtain any history from the patient herself and no family members or fianc were bedside at the time of my examination. CBC/BMP: 11/09/17 0610 11/11/17 0256 Significant Findings Laboratory Tests Test 11/10/17 16:19 11/11/17 02:56 11/12/17 06:37 Random Glucose 130 MG/DL (74-106) Albumin 2.5 GM/DL (3.4-5.0) Calcium Level 8.3 MG/DL (8.5-10.1) Alkaline Phosphatase 125 U/L (45-117) Aspartate Amino Transf (AST/SGOT) 57 U/L (15-37) Alanine Aminotransferase (ALT/SGPT) 139 U/L (10-53) Total Bilirubin 1.4 MG/DL (0.2-1.0) Chloride Level 109 MEQ/L (98-107) Estimat Glomerular Filtration Rate 69 ML/MIN (>89) Ammonia 38 MCMOL/L (11-32) Hepatitis Be Antigen REACTIVE (NON-REACTVE) Urine Glucose (UA) 70 mg/dL (NEG) PE at Discharge GENERAL: This is a well-nourished, well-developed patient, in no apparent distress. SKIN: No rashes, warm and dry HEAD: Atraumatic. Normocephalic. EYES: Pupils equal round and reactive. Extraocular motions intact. No scleral icterus. ENT: Nose without bleeding, or drainage, Airway patent. NECK: Trachea midline. Supple CARDIOVASCULAR: Regular rate and rhythm without murmurs, gallops, or rubs. RESPIRATORY: Fair air entry bilaterally. No wheezes, rales, or rhonchi. GASTROINTESTINAL: Abdomen soft, mild right upper quadrant soreness, nondistended. Positive bowel sounds MUSCULOSKELETAL: Extremities without clubbing, cyanosis, or edema. Pedal pulses appreciated NEUROLOGICAL: Awake and alert. Moves all extremity. Normal speech.no focal neurological deficit Hospital Course 57 years old female admitted with acute encephalopathy weakness found to have hyperammonemia started on lactulose with hydration IV fluid, patient also had transaminitis newly diagnosed with hepatitis B and C GI consulted patient had a workup including EGD which showed gastritis, she had acute kidney injury which slowly improved back to baseline on IV hydration, GI cleared patient to be discharged today to follow-up as an outpatient for further workup [id number] encounter performed with the patient on discharge day, as well as physical exam, summary of hospitalization course and postdischarge plan has been D/W the patient. D/W nurse D/W outsole caser. Discharge medications reviewed and printed and signed, post discharge follow up visit with PCP and other specialist as well as Brief hospital course and discharge summary has been placed. Pt Condition on Discharge: Good Discharge Disposition: Discharge Home Discharge Time: > 30 minutes Discharge Instructions DIET: Follow Instructions for: Heart Healthy Diet Activities you can perform: Weight Bearing as Kya Follow up Referrals: Gastroenterology - 1 Week with Jocelyne Oneal MD New Medications: [Lactulose Liq] () 30 ML SYRP 30 ML PO TID for hyper ammoonia, #9 Continued Medications: Bupropion HCl ER 12 HR (Wellbutrin SR 12 HR) 150 Mg Tab 150 MG PO BID for Control Depression, TAB 0 Refills Losartan (Losartan) 100 Mg Tab 100 MG PO HS for Blood Pressure Management, #30 TAB 0 Refills Morphine ER (Morphine ER) 15 Mg Tab 15 MG PO Q8H for Pain Management, TAB 0 Refills Pantoprazole (Pantoprazole) 40 Mg Tab 40 MG PO BID for Reflux, #30 TAB 0 Refills Ranitidine (Ranitidine) 150 Mg Tab 150 MG PO HS for Heartburn Management, #30 TAB 0 Refills Topiramate (Topamax) 50 Mg Tab 50 MG PO TID for Control Seizures, #60 TAB 0 Refills Alexandra Cruz MD Nov 13, 2017 10:16
[2017-11-13 19:53] LABS: CERULOPLASMIN 33 mg/dL (18-53)
[2017-11-14 17:52] LABS: HCV RNA PCR IU/ML 145 IU/mL (Not Detected)
[2017-11-14 23:51] LABS: MITOCHONDRIAL ABS LESS THAN 20.0 U (<=20.0)
[2017-11-15 17:53] LABS: HEP B DNA R2 3.8 (Not Detected)
== END 2017-11-13 01:34 | disposition home or self-care (01) | DRG 917 ==
LOC: NEPC 13:57 → NEDA 19:16 → OBSVTOIN 19:25 → NEPHCDU 21:34 → N04B 11-10 18:51
PROVIDERS: ADMIT Hospitalist; ATTEND Hospitalist
PROC: 0DB78ZX Excision of Stomach, Pylorus, Via Natural or Artificial Opening Endoscopic, Diagnostic (ICD-10-PCS; 2017-11-12)
PROC: 0DB58ZX Excision of Esophagus, Via Natural or Artificial Opening Endoscopic, Diagnostic (ICD-10-PCS; principal; 2017-11-12 13:05)
DX: T40.601A Poisoning by unspecified narcotics, accidental (unintentional), initial encounter (principal); G92 Toxic encephalopathy; N17.9 Acute kidney failure, unspecified; E72.20 Disorder of urea cycle metabolism, unspecified; E87.2 Acidosis; K81.9 Cholecystitis, unspecified; B19.10 Unspecified viral hepatitis B without hepatic coma; K71.10 Toxic liver disease with hepatic necrosis, without coma; R16.1 Splenomegaly, not elsewhere classified; T40.5X1A Poisoning by cocaine, accidental (unintentional), initial encounter; I10 Essential (primary) hypertension; E78.00 Pure hypercholesterolemia, unspecified; K21.9 Gastro-esophageal reflux disease without esophagitis; E86.0 Dehydration; G43.909 Migraine, unspecified, not intractable, without status migrainosus; R29.6 Repeated falls; K76.0 Fatty (change of) liver, not elsewhere classified; R74.0 Nonspecific elevation of levels of transaminase and lactic acid dehydrogenase [LDH]; R40.2412 Glasgow coma scale score 13-15, at arrival to emergency department; B19.20 Unspecified viral hepatitis C without hepatic coma; K29.50 Unspecified chronic gastritis without bleeding; M19.90 Unspecified osteoarthritis, unspecified site; F12.90 Cannabis use, unspecified, uncomplicated; F17.210 Nicotine dependence, cigarettes, uncomplicated; F32.9 Major depressive disorder, single episode, unspecified; F41.9 Anxiety disorder, unspecified; Z86.14 Personal history of Methicillin resistant Staphylococcus aureus infection
CPT/HCPCS: 70450; 71045; 72125; 74177; 76705; 78227; 80048; 80053; 80074; 80076; 80307; 81001; 82103; 82105; 82140; 82390; 82550; 82728; 82805; 83520; 83540; 83550; 83605; 83690; 83735; 84484; 85025; 85610; 85730; 86038; 86255; 87040; 87350; 87517; 87522; 87902; 88305; 88312; 93005; 93971; 96360; A9537; J2543; J2805; J7030; J7040; J7120; P9612; Q9963; Q9967